=== PATIENT | female | born 1955 | race Caucasian/White ===

== ENCOUNTER 2018-07-13 10:39 | Inpatient (IN) | payer MEDICAID, OTHER ==
[~2018-07-13] VITALS: Ht 165.1 cm; Wt 84.4 kg
[~2018-07-13 10:39] MED LIST: AMLO10TA80 PO; BACL-141 PO; DOCU-150 PO; FERR325T6 PO; GABA-290 PO; HYDR-4009 MT; HYDR25TA PO; LOSA50TA3 PO; OMEP20CA10 PO; SIMV20TA6 PO; [UNRECOGNIZED DRUG - CODE] PO
[2018-07-13] MEDS ORDERED: SODIUM CHLORIDE 0.9% 1,000 ML IV ONE (11:45)
[2018-07-13] MEDS ORDERED: KETOROLAC 30MG/ML VIAL IV STA (11:45)
[2018-07-13] MEDS ORDERED: ONDANSETRON HCL 4MG/2ML INJ IV STA (11:45)
[2018-07-13] MEDS ORDERED: CLINDAMYCIN 600 MG in DEXTROSE 5% WATER 50 ML IV ONE (12:15)
[2018-07-13] MEDS ORDERED: CEFTRIAXONE 1 G PREMIX 50 ML IV ONE (12:15)
[2018-07-13] MEDS ORDERED: SODIUM CHLORIDE 0.9% 1000ML BAG (SEPSIS BOLUS) IV ONE (12:15)
[2018-07-13] MEDS ORDERED: MORPHINE SULFATE 10 MG/ML CPJ IV ONE (12:15)
[2018-07-13 12:45] LABS: BASOPHILS % 0.4 % (0.0-2.0); LYMPHOCYTES % 9.3 % (20.0-50.0); MEAN CORPUSCULAR HEMOGLOBIN 27.8 pg (28.0-32.0); MEAN CORPUSCULAR VOLUME 86.2 fL (81.0-99.0); MEAN PLATELET VOLUME 9.9 fl (7.4-10.4); MONOCYTES % 9.5 % (2.0-8.0); NEUTROPHILS % 80.8 % (40.0-76.0); PLATELET 271 x1000/uL (130-400); RED CELL DISTRIBUTION WIDTH 14.9 % (11.6-14.6)
[2018-07-13 12:50] LABS: CHLORIDE 107 mEq/L (98-107)
[2018-07-13 12:59] LABS: INR 1.1; PROTHROMBIN TIME 11.1 sec (9.1-11.1)
[2018-07-13] MEDS ORDERED: DIATR MEGLU/DIATRIZOATE SOLN 30ML ONE (15:04)
[2018-07-13 23:57] VITALS: BP 125/55
[2018-07-14] VITALS (7 sets, daily range): BP systolic 102–150; BP diastolic 46–69
[2018-07-14] MEDS ORDERED: ONDANSETRON HCL 4MG/2ML INJ IV PRN (01:45)
[2018-07-14] MEDS ORDERED: MORPHINE SULFATE 4 MG/ML CPJ (NOT FOR IM USE) IV PRN (01:45)
[2018-07-14] MEDS: ACETAMINOPHEN 325MG TABLET PO PRN (03:28)
[2018-07-14 06:29] LABS: CREATINE KINASE 26 IU/L (26-192); CREATINE KINASE MB FRACTION < 1.0 ng/mL (0.5-3.6)
[2018-07-14] MEDS: ASPIRIN 81MG TABLET PO SCH (08:36)
[2018-07-14] MEDS: ENOXAPARIN 30MG/0.3ML SYR SUBCUT SCH ×2 (08:37→09:00)
[2018-07-14] MEDS ORDERED: ENOXAPARIN 40MG/0.4ML SYR SUBCUT SCH (09:00)
[2018-07-14] MEDS ORDERED: DEXTROSE 50% WATER 50ML SYRINGE IV PRN (14:15)
[2018-07-14 15:51] LABS: CREATINE KINASE 24 IU/L (26-192)
[2018-07-14 15:52] LABS: CREATINE KINASE MB FRACTION 1.1 ng/mL (0.5-3.6)
[2018-07-14] MEDS: OMEPRAZOLE 20MG CAPSULE EXTENDED RELEASE PO SCH (16:48)
[2018-07-14] MEDS: SODIUM CHLORIDE 0.9% 1,000 ML IV SCH (16:48)
[2018-07-14] MEDS: AMLODIPINE 10MG TABLET PO SCH (16:49)
[2018-07-14] MEDS: GABAPENTIN 300MG CAPSULE PO SCH (17:00)
[2018-07-14] MEDS ORDERED: MEDICATION NOT ON FORMULARY EA (Gabapentin 600 MG) PO SCH (17:00)
[2018-07-14] MEDS: BLOOD SUGAR DIAGNOSTIC STRIP TEST SCH ×2 (17:03→20:34)
[2018-07-14] MEDS: INSULIN LISPRO 100 UNITS/ML SUBCUT SCH ×2 (19:14→20:34)
[2018-07-14] MEDS ORDERED: VANCOMYCIN 1250MG in DEXTROSE 5% WATER 250ML IV SCH (20:00)
[2018-07-14] MEDS: ATORVASTATIN CALCIUM 40MG TABLET PO SCH (20:33)
[2018-07-14] MEDS ORDERED: BUPIVACAINE HCL/PF 0.5% (5MG/ML) 10ML ONE (23:00)
[2018-07-14] MEDS ORDERED: NORMAL SALINE 0.9% 10 ML SYR ONE (23:00)
[2018-07-14] MEDS ORDERED: BACITRACIN 50,000 UNITS/VIAL ONE (23:01)
[2018-07-15] MEDS: SODIUM CHLORIDE 0.9% 1,000 ML IV SCH ×3 (00:15→22:08)
[2018-07-15 01:30] LABS: CREATINE KINASE 31 IU/L (26-192)
[2018-07-15 01:33] LABS: CREATINE KINASE MB FRACTION 1.9 ng/mL (0.5-3.6)
[2018-07-15 04:00] VITALS: BP 132/58
[2018-07-15 06:35] LABS: BASOPHILS % 0.2 % (0.0-2.0); EOSINOPHILS % 0.5 % (0.0-5.0); HEMATOCRIT. 25.8 % (36.0-48.0); HEMOGLOBIN. 8.5 g/dL (12.0-16.0); LYMPHOCYTES % 14.6 % (20.0-50.0); MEAN CORPUSCULAR VOLUME 84.8 fL (81.0-99.0); MONOCYTES % 6.5 % (2.0-8.0); NEUTROPHILS % 78.2 % (40.0-76.0); PLATELET 251 x1000/uL (130-400); RED BLOOD CELL COUNT 3.04 mill/uL (4.2-5.4); RED CELL DISTRIBUTION WIDTH 14.7 % (11.6-14.6)
[2018-07-15] MEDS: BLOOD SUGAR DIAGNOSTIC STRIP TEST SCH ×4 (07:50→21:28)
[2018-07-15 08:00] VITALS: BP 110/57
[2018-07-15] MEDS: INSULIN LISPRO 100 UNITS/ML SUBCUT SCH ×4 (08:10→22:07)
[2018-07-15] MEDS: AMLODIPINE 10MG TABLET PO SCH (08:53)
[2018-07-15] MEDS: GABAPENTIN 300MG CAPSULE PO SCH ×3 (09:05→18:12)
[2018-07-15] MEDS: ACETAMINOPHEN 325MG TABLET PO PRN ×2 (09:05→19:53)
[2018-07-15] MEDS: OMEPRAZOLE 20MG CAPSULE EXTENDED RELEASE PO SCH (09:06)
[2018-07-15] MEDS: ASPIRIN 81MG TABLET PO SCH (09:06)
[2018-07-15] MEDS: ENOXAPARIN 30MG/0.3ML SYR SUBCUT SCH (09:08)
[2018-07-15 16:00] VITALS: BP 104/69
[2018-07-15 20:00] VITALS: BP 118/55
[2018-07-15] MEDS ORDERED: VANCOMYCIN 750 MG PREMIX 150 ML IV SCH (20:00)
[2018-07-15] MEDS: ATORVASTATIN CALCIUM 40MG TABLET PO SCH (22:12)
[2018-07-15] MEDS: VANCOMYCIN 1 G PREMIX 200 ML IV SCH (23:38)
[2018-07-16] VITALS: BP 105/54
[2018-07-16] MEDS: PIPERACILLIN SODIUM/TAZOBACTAM 4.5 G in DEXT 5% WATER 100 ML IV SCH ×4 (01:09→17:28)
[2018-07-16 04:00] VITALS: BP 141/73
[2018-07-16] MEDS: SODIUM CHLORIDE 0.9% 1,000 ML IV SCH ×2 (06:15→16:15)
[2018-07-16] MEDS: BLOOD SUGAR DIAGNOSTIC STRIP TEST SCH ×4 (07:36→21:10)
[2018-07-16] MEDS: INSULIN LISPRO 100 UNITS/ML SUBCUT SCH ×4 (07:36→22:35)
[2018-07-16 08:00] VITALS: BP 97/60
[2018-07-16 08:14] LABS: HIV SCREEN 4G Non Reactive (Non Reactive)
[2018-07-16] MEDS ORDERED: BACITRACIN 50,000 UNITS/VIAL ONE (08:17)
[2018-07-16] MEDS ORDERED: LIDOCAINE HCL 1% 20ML VIAL (Pyxis) INJ ONE (08:18)
[2018-07-16] MEDS ORDERED: BUPIVACAINE HCL/PF 0.5% (5MG/ML) 10ML ONE (08:18)
[2018-07-16] MEDS ORDERED: NORMAL SALINE 0.9% 10 ML SYR ONE (08:19)
[2018-07-16] MEDS ORDERED: MIDAZOLAM HCL 2 MG/2 ML VIAL ONE ×2 (08:40→09:16)
[2018-07-16] MEDS ORDERED: PROPOFOL 200MG/20ML VIAL IV ONE (08:40)
[2018-07-16] MEDS ORDERED: FENTANYL CITRATE/PF 50MCG/ML 2ML VIAL ONE (08:40)
[2018-07-16] MEDS: ASPIRIN 81MG TABLET PO SCH (09:00)
[2018-07-16] MEDS: FAMOTIDINE 20MG TABLET PO SCH (09:00)
[2018-07-16] MEDS: ENOXAPARIN 40MG/0.4ML SYR SUBCUT SCH (09:00)
[2018-07-16] MEDS: AMLODIPINE 10MG TABLET PO SCH (09:00)
[2018-07-16] MEDS: GABAPENTIN 300MG CAPSULE PO SCH ×3 (09:00→17:28)
[2018-07-16] MEDS ORDERED: HYDROMORPHONE HCL/PF 2MG/ML CPJ IV PRN (09:15)
[2018-07-16] MEDS ORDERED: ONDANSETRON HCL 4MG/2ML INJ IV PRN (09:15)
[2018-07-16] MEDS ORDERED: MEPERIDINE HCL/PF 25MG/ML CPJ IV PRN (09:15)
[2018-07-16] MEDS ORDERED: LABETALOL 5MG/ML SYR 20 MG/4 ML SYRINGE IV PRN (09:15)
[2018-07-16] MEDS ORDERED: HYDROMORPHONE HCL/PF 2MG/ML (OR) ONE (09:16)
[2018-07-16] MEDS ORDERED: DEXAMETHASONE 4MG/ML 1ML VIAL ONE (09:16)
[2018-07-16 12:00] VITALS: BP 97/60
[2018-07-16 16:00] VITALS: BP 116/65
[2018-07-16] MEDS: HYDROMORPHONE HCL/PF 2MG/ML CPJ IV PRN ×2 (17:47→22:36)
[2018-07-16 20:00] VITALS: BP 98/54
[2018-07-16] MEDS: VANCOMYCIN 1 G PREMIX 200 ML IV SCH (22:37)
[2018-07-16] MEDS: ATORVASTATIN CALCIUM 40MG TABLET PO SCH (22:37)
[2018-07-17] VITALS: BP 111/55
[2018-07-17] MEDS: PIPERACILLIN SODIUM/TAZOBACTAM 4.5 G in DEXT 5% WATER 100 ML IV SCH ×2 (02:00→03:56)
[2018-07-17] MEDS: HYDROMORPHONE HCL/PF 2MG/ML CPJ IV PRN ×2 (03:55→13:56)
[2018-07-17] MEDS: SODIUM CHLORIDE 0.9% 1,000 ML IV SCH ×3 (03:56→22:42)
[2018-07-17 04:00] VITALS: BP 149/69
[2018-07-17] MEDS: BLOOD SUGAR DIAGNOSTIC STRIP TEST SCH ×4 (06:52→21:13)
[2018-07-17 07:15] LABS: BASOPHILS % 0.1 % (0.0-2.0); HEMOGLOBIN. 8.2 g/dL (12.0-16.0); LYMPHOCYTES % 13.5 % (20.0-50.0); MEAN CORPUSCULAR HEMOGLOBIN 28.2 pg (28.0-32.0); MEAN CORPUSCULAR VOLUME 85.5 fL (81.0-99.0); MEAN PLATELET VOLUME 9.9 fl (7.4-10.4); MONOCYTES % 4.9 % (2.0-8.0); NEUTROPHILS % 81.5 % (40.0-76.0); PLATELET 246 x1000/uL (130-400); RED BLOOD CELL COUNT 2.93 mill/uL (4.2-5.4); RED CELL DISTRIBUTION WIDTH 15.2 % (11.6-14.6)
[2018-07-17 08:00] VITALS: BP 136/61
[2018-07-17] MEDS: FAMOTIDINE 20MG TABLET PO SCH (10:26)
[2018-07-17] MEDS: ASPIRIN 81MG TABLET PO SCH (10:26)
[2018-07-17] MEDS: GABAPENTIN 300MG CAPSULE PO SCH ×3 (10:26→17:18)
[2018-07-17] MEDS: ENOXAPARIN 40MG/0.4ML SYR SUBCUT SCH (10:27)
[2018-07-17] MEDS: PIPERACILLIN/TAZ 2.25G PREMIX 50 ML IV SCH ×3 (10:27→17:18)
[2018-07-17] MEDS: INSULIN LISPRO 100 UNITS/ML SUBCUT SCH ×4 (10:39→21:22)
[2018-07-17] MEDS: AMLODIPINE 10MG TABLET PO SCH (11:35)
[2018-07-17] MEDS: ACETAMINOPHEN 325MG TABLET PO PRN (11:36)
[2018-07-17 12:00] VITALS: BP 131/61
[2018-07-17 16:00] VITALS: BP 141/54
[2018-07-17 20:00] VITALS: BP 102/42
[2018-07-17] MEDS: ATORVASTATIN CALCIUM 40MG TABLET PO SCH (21:13)
[2018-07-17] MEDS: VANCOMYCIN 1 G PREMIX 200 ML IV SCH (22:43)
[2018-07-18] VITALS: BP 107/50
[2018-07-18] MEDS: PIPERACILLIN/TAZ 2.25G PREMIX 50 ML IV SCH ×4 (00:11→17:07)
[2018-07-18 04:00] VITALS: BP 112/52
[2018-07-18] MEDS: HYDROMORPHONE HCL/PF 2MG/ML CPJ IV PRN ×3 (06:15→22:16)
[2018-07-18 08:00] VITALS: BP 115/54
[2018-07-18] MEDS: BLOOD SUGAR DIAGNOSTIC STRIP TEST SCH ×4 (08:10→21:19)
[2018-07-18] MEDS: FAMOTIDINE 20MG TABLET PO SCH (08:31)
[2018-07-18] MEDS: ASPIRIN 81MG TABLET PO SCH (08:31)
[2018-07-18] MEDS: ENOXAPARIN 40MG/0.4ML SYR SUBCUT SCH (08:32)
[2018-07-18] MEDS: AMLODIPINE 10MG TABLET PO SCH (08:34)
[2018-07-18] MEDS: GABAPENTIN 300MG CAPSULE PO SCH ×3 (08:34→16:23)
[2018-07-18] MEDS: INSULIN LISPRO 100 UNITS/ML SUBCUT SCH ×4 (08:36→21:30)
[2018-07-18] MEDS: SODIUM CHLORIDE 0.9% 1,000 ML IV SCH ×2 (10:13→21:29)
[2018-07-18] MEDS: ACETAMINOPHEN 325MG TABLET PO PRN (12:24)
[2018-07-18 12:30] VITALS: BP 100/51
[2018-07-18 16:00] VITALS: BP 104/58
[2018-07-18 20:00] VITALS: BP 104/56
[2018-07-18] MEDS: ATORVASTATIN CALCIUM 40MG TABLET PO SCH (21:29)
[2018-07-18] MEDS: VANCOMYCIN 1 G PREMIX 200 ML IV SCH (22:16)
[2018-07-19] VITALS: BP 118/57
[2018-07-19] MEDS: PIPERACILLIN/TAZ 2.25G PREMIX 50 ML IV SCH ×5 (01:04→23:52)
[2018-07-19 04:00] VITALS: BP 133/73
[2018-07-19] MEDS: HYDROMORPHONE HCL/PF 2MG/ML CPJ IV PRN ×2 (05:29→09:44)
[2018-07-19 06:04] LABS: HEMATOCRIT. 26.7 % (36.0-48.0); HEMOGLOBIN. 8.9 g/dL (12.0-16.0); MEAN CORPUSCULAR HEMOGLOBIN 28.6 pg (28.0-32.0); MEAN CORPUSCULAR VOLUME 86.1 fL (81.0-99.0); MEAN PLATELET VOLUME 9.3 fl (7.4-10.4); PLATELET 301 x1000/uL (130-400); RED CELL DISTRIBUTION WIDTH 15.4 % (11.6-14.6)
[2018-07-19] MEDS: BLOOD SUGAR DIAGNOSTIC STRIP TEST SCH ×4 (07:22→21:18)
[2018-07-19] MEDS: INSULIN LISPRO 100 UNITS/ML SUBCUT SCH ×4 (07:54→21:00)
[2018-07-19 08:00] VITALS: BP 135/61
[2018-07-19 08:41] LABS: CHLORIDE 113 mEq/L (98-107)
[2018-07-19] MEDS: ENOXAPARIN 40MG/0.4ML SYR SUBCUT SCH (09:42)
[2018-07-19] MEDS: GABAPENTIN 300MG CAPSULE PO SCH ×3 (09:42→18:17)
[2018-07-19] MEDS: FAMOTIDINE 20MG TABLET PO SCH (09:42)
[2018-07-19] MEDS: ASPIRIN 81MG TABLET PO SCH (09:42)
[2018-07-19] MEDS: AMLODIPINE 10MG TABLET PO SCH (09:56)
[2018-07-19 11:27] LABS: PLATELET ESTIMATE NORMAL
[2018-07-19] MEDS: SODIUM CHLORIDE 0.9% 1,000 ML IV SCH (13:43)
[2018-07-19] MEDS: ACETAMINOPHEN 325MG TABLET PO PRN (18:32)
[2018-07-19 20:00] VITALS: BP 124/52
[2018-07-19] MEDS: ATORVASTATIN CALCIUM 40MG TABLET PO SCH (21:42)
[2018-07-20] VITALS: BP 118/60
[2018-07-20] MEDS: SODIUM CHLORIDE 0.9% 1,000 ML IV SCH ×4 (00:15→20:15)
[2018-07-20] MEDS: ACETAMINOPHEN 325MG TABLET PO PRN (01:51)
[2018-07-20] MEDS: VANCOMYCIN 1,000 MG in DEXT 5% WATER 250 ML IV SCH ×2 (02:25→23:00)
[2018-07-20 04:00] VITALS: BP 119/62
[2018-07-20] MEDS: PIPERACILLIN/TAZ 2.25G PREMIX 50 ML IV SCH ×4 (05:37→23:03)
[2018-07-20] MEDS: BLOOD SUGAR DIAGNOSTIC STRIP TEST SCH ×4 (06:44→21:05)
[2018-07-20 08:00] VITALS: BP 135/51
[2018-07-20] MEDS: INSULIN LISPRO 100 UNITS/ML SUBCUT SCH ×4 (09:56→21:29)
[2018-07-20] MEDS: ENOXAPARIN 40MG/0.4ML SYR SUBCUT SCH (09:56)
[2018-07-20] MEDS: FAMOTIDINE 20MG TABLET PO SCH (09:56)
[2018-07-20] MEDS: ASPIRIN 81MG TABLET PO SCH (09:56)
[2018-07-20] MEDS: AMLODIPINE 10MG TABLET PO SCH (10:01)
[2018-07-20] MEDS: GABAPENTIN 300MG CAPSULE PO SCH ×3 (10:01→18:55)
[2018-07-20 12:00] VITALS: BP 128/56
[2018-07-20] MEDS: HYDROMORPHONE HCL/PF 2MG/ML CPJ IV PRN (12:50)
[2018-07-20 16:00] VITALS: BP 122/56
[2018-07-20 20:00] VITALS: BP 110/54
[2018-07-20] MEDS: ATORVASTATIN CALCIUM 40MG TABLET PO SCH (21:27)
[2018-07-20] MEDS: TRAMADOL 50MG TABLET PO PRN (23:00)
[2018-07-21] VITALS: BP 115/59
[2018-07-21 04:00] VITALS: BP 118/56
[2018-07-21] MEDS: PIPERACILLIN/TAZ 2.25G PREMIX 50 ML IV SCH ×2 (05:42→12:00)
[2018-07-21] MEDS: TRAMADOL 50MG TABLET PO PRN ×3 (05:46→17:20)
[2018-07-21] MEDS: SODIUM CHLORIDE 0.9% 1,000 ML IV SCH ×2 (06:15→12:55)
[2018-07-21] MEDS: BLOOD SUGAR DIAGNOSTIC STRIP TEST SCH ×4 (06:46→20:49)
[2018-07-21 08:00] VITALS: BP 136/68
[2018-07-21] MEDS: FAMOTIDINE 20MG TABLET PO SCH (08:06)
[2018-07-21] MEDS: GABAPENTIN 300MG CAPSULE PO SCH ×3 (08:06→17:20)
[2018-07-21] MEDS: ASPIRIN 81MG TABLET PO SCH (08:06)
[2018-07-21] MEDS: AMLODIPINE 10MG TABLET PO SCH (08:06)
[2018-07-21] MEDS: INSULIN LISPRO 100 UNITS/ML SUBCUT SCH ×4 (08:10→20:48)
[2018-07-21 12:00] VITALS: BP 120/51
[2018-07-21] MEDS ORDERED: DOXYCYCLINE HYCLATE 100MG CAPSULE PO SCH (14:00)
[2018-07-21 16:00] VITALS: BP 124/64
[2018-07-21] MEDS: ENOXAPARIN 40MG/0.4ML SYR SUBCUT SCH (17:20)
[2018-07-21 20:00] VITALS: BP 125/61
[2018-07-21] MEDS: AMOXICILLIN/POTASSIUM CLAVULANATE 875/125MG TAB PO SCH (20:31)
[2018-07-21] MEDS: ATORVASTATIN CALCIUM 40MG TABLET PO SCH (20:31)
[2018-07-21] MEDS: ACETAMINOPHEN 325MG TABLET PO PRN (20:32)
[2018-07-22 00:37] VITALS: BP 116/56
[2018-07-22] MEDS: SODIUM CHLORIDE 0.9% 1,000 ML IV SCH ×2 (02:15→12:15)
[2018-07-22] MEDS: TRAMADOL 50MG TABLET PO PRN ×2 (05:48→13:06)
[2018-07-22] MEDS: BLOOD SUGAR DIAGNOSTIC STRIP TEST SCH ×3 (06:41→17:34)
[2018-07-22 08:00] VITALS: BP 115/49
[2018-07-22] MEDS: FAMOTIDINE 20MG TABLET PO SCH (08:16)
[2018-07-22] MEDS: ENOXAPARIN 40MG/0.4ML SYR SUBCUT SCH (08:16)
[2018-07-22] MEDS: ASPIRIN 81MG TABLET PO SCH (08:16)
[2018-07-22] MEDS: GABAPENTIN 300MG CAPSULE PO SCH ×3 (08:16→17:52)
[2018-07-22] MEDS: AMOXICILLIN/POTASSIUM CLAVULANATE 875/125MG TAB PO SCH (08:16)
[2018-07-22] MEDS: AMLODIPINE 10MG TABLET PO SCH (08:21)
[2018-07-22] MEDS: INSULIN LISPRO 100 UNITS/ML SUBCUT SCH ×3 (09:47→17:34)
[2018-07-22 12:00] VITALS: BP 119/54
[2018-07-22 16:00] VITALS: BP 114/61
[2018-07-22 16:45] VITALS: BP 104/67
[2018-07-22] MEDS ORDERED: AMOX-424 MT (16:51)
[2018-07-22] MEDS ORDERED: DOXY100T2 MT (16:52)
[2018-07-22 20:00] VITALS: BP 96/106
== END 2018-07-22 21:30 | DRG 710 ==
LOC: ER 10:39 → 7WST 14:12 → EDBEDREQSVC 14:20 → EDBEDREQTM 14:20 → EDBEDREQ 14:20 → ENRESERV 21:15
PROVIDERS: ADMIT Internal Medicine; ATTEND Internal Medicine
PROC: 0J9C0ZZ Drainage of Pelvic Region Subcutaneous Tissue and Fascia, Open Approach (ICD-10-PCS; principal; 2018-07-14)
PROC: 0KBP0ZZ Excision of Left Hip Muscle, Open Approach (ICD-10-PCS; 2018-07-14)
DX: A41.9 Sepsis, unspecified organism (principal); N17.0 Acute kidney failure with tubular necrosis; M72.6 Necrotizing fasciitis; E46 Unspecified protein-calorie malnutrition; E11.22 Type 2 diabetes mellitus with diabetic chronic kidney disease; D64.9 Anemia, unspecified; K61.1 Rectal abscess; E78.00 Pure hypercholesterolemia, unspecified; E78.5 Hyperlipidemia, unspecified; E86.0 Dehydration; K21.9 Gastro-esophageal reflux disease without esophagitis; L02.31 Cutaneous abscess of buttock; L03.317 Cellulitis of buttock; K62.89 Other specified diseases of anus and rectum; I12.9 Hypertensive chronic kidney disease with stage 1 through stage 4 chronic kidney disease, or unspecified chronic kidney disease; N18.9 Chronic kidney disease, unspecified; Z68.31 Body mass index [BMI] 31.0-31.9, adult
CPT/HCPCS: 36415; 72192; 73030; 80048; 80202; 82550; 82553; 82962; 83036; 83605; 84484; 87389; 88304; 93005; 96365; 96366; 96375; 99291; A6261; J0696; J1100; J1170; J1650; J1815; J1885; J2250; J2270; J2405; J2543; J2704; J3010; J3370; J3490; J7030; J7060; Q9963; A4315

== ENCOUNTER 2019-01-21 12:17 | Emergency (ER) | payer MEDICAID, OTHER ==
[~2019-01-21] VITALS: Ht 160 cm; Wt 79.0 kg
[~2019-01-21 12:17] MED LIST changes: +AMOX-424 MT; +DOXY100T2 MT; -OMEP20CA10 PO; +OMEP20CA5 PO
[2019-01-21 13:10] LABS: BASOPHILS % 0.9 % (0.0-2.0); CHLORIDE 113 mEq/L (98-107); EOSINOPHILS % 1.7 % (0.0-5.0); HEMATOCRIT. 32.4 % (36.0-48.0); LYMPHOCYTES % 43.1 % (20.0-50.0); MEAN CORPUSCULAR VOLUME 82.7 fL (81.0-99.0); MEAN PLATELET VOLUME 8.4 fl (7.4-10.4); MONOCYTES % 5.9 % (2.0-8.0); NEUTROPHILS % 48.4 % (40.0-76.0); PLATELET 196 x1000/uL (130-400); RED BLOOD CELL COUNT 3.92 mill/uL (4.2-5.4); RED CELL DISTRIBUTION WIDTH 18.2 % (11.6-14.6)
[2019-01-21 15:45] VITALS: BP 131/78
== END 2019-01-21 15:46 | disposition home or self-care (01) ==
LOC: ER 12:17
DX: E87.5 Hyperkalemia (principal); R53.1 Weakness; R42 Dizziness and giddiness; E11.9 Type 2 diabetes mellitus without complications; I10 Essential (primary) hypertension; Z79.899 Other long term (current) drug therapy; Z88.5 Allergy status to narcotic agent
CPT/HCPCS: 36415; 93005; 99284

== ENCOUNTER 2019-01-24 11:23 | Inpatient (IN) | payer MEDICAID ==
[~2019-01-24] VITALS: Ht 157.5 cm; Wt 84.8 kg
[2019-01-24 12:27] LABS: BASOPHILS % 0.4 % (0.0-2.0); EOSINOPHILS % 1.6 % (0.0-5.0); HEMATOCRIT. 31.9 % (36.0-48.0); HEMOGLOBIN. 10.8 g/dL (12.0-16.0); LYMPHOCYTES % 41.5 % (20.0-50.0); MEAN CORPUSCULAR HEMOGLOBIN 28.1 pg (28.0-32.0); MEAN CORPUSCULAR VOLUME 83.2 fL (81.0-99.0); MEAN PLATELET VOLUME 8.1 fl (7.4-10.4); MONOCYTES % 6.9 % (2.0-8.0); NEUTROPHILS % 49.6 % (40.0-76.0); PLATELET 216 x1000/uL (130-400); RED BLOOD CELL COUNT 3.84 mill/uL (4.2-5.4); RED CELL DISTRIBUTION WIDTH 17.7 % (11.6-14.6)
[2019-01-24 12:32] LABS: CHLORIDE 108 mEq/L (98-107)
[2019-01-24] MEDS ORDERED: CLONIDINE 0.1MG TABLET PO PRN (14:00)
[2019-01-24] MEDS ORDERED: IPRATROPIUM/ALBUTEROL 0.5-3(2.5)MG/3ML NEB HHN PRN (14:00)
[2019-01-24] MEDS ORDERED: ONDANSETRON HCL 4MG/2ML INJ IV PRN (14:00)
[2019-01-24] MEDS ORDERED: LORAZEPAM 0.5MG TABLET PO PRN (14:00)
[2019-01-24] MEDS ORDERED: ACETAMINOPHEN 325MG TABLET PO PRN (14:00)
[2019-01-24] MEDS ORDERED: DOCUSATE SODIUM 100MG CAPSULE PO PRN (14:00)
[2019-01-24 17:00] VITALS: BP 149/67
[2019-01-24 20:00] VITALS: BP 119/65
[2019-01-24] MEDS: HYDROCODONE/ACETAMINOPHEN 5/325MG TABLET PO PRN (22:22)
[2019-01-24] MEDS: AMLODIPINE 5MG TABLET PO SCH (22:23)
[2019-01-24] MEDS: ATORVASTATIN CALCIUM 20MG TABLET PO SCH (22:23)
[2019-01-24] MEDS: BACLOFEN 10MG TABLET PO SCH (22:23)
[2019-01-25] VITALS: BP 126/72
[2019-01-25 04:00] VITALS: BP 146/60
[2019-01-25] MEDS: BACLOFEN 10MG TABLET PO SCH ×3 (05:22→21:44)
[2019-01-25] MEDS: HYDROCODONE/ACETAMINOPHEN 5/325MG TABLET PO PRN ×3 (05:23→15:19)
[2019-01-25 07:46] LABS: BASOPHILS % 1.1 % (0.0-2.0); EOSINOPHILS % 1.5 % (0.0-5.0); HEMATOCRIT. 29.3 % (36.0-48.0); HEMOGLOBIN. 9.7 g/dL (12.0-16.0); MEAN CORPUSCULAR VOLUME 84.4 fL (81.0-99.0); MEAN PLATELET VOLUME 8.1 fl (7.4-10.4); MONOCYTES % 7.3 % (2.0-8.0); NEUTROPHILS % 36.1 % (40.0-76.0); PLATELET 201 x1000/uL (130-400); RED BLOOD CELL COUNT 3.47 mill/uL (4.2-5.4); RED CELL DISTRIBUTION WIDTH 17.2 % (11.6-14.6)
[2019-01-25 08:00] VITALS: BP 133/51
[2019-01-25 08:12] LABS: CHLORIDE 112 mEq/L (98-107)
[2019-01-25 08:23] LABS: LDL CHOLESTEROL 73 mg/dL (5-100)
[2019-01-25 08:24] LABS: CREATINE KINASE 44 IU/L (26-192); CREATINE KINASE MB FRACTION 1.3 ng/mL (0.5-3.6); HDL CHOLESTEROL 57 mg/dL (40-59)
[2019-01-25] MEDS: NICOTINE 14MG PATCH TD SCH (09:38)
[2019-01-25] MEDS: AMLODIPINE 5MG TABLET PO SCH ×2 (09:39→21:44)
[2019-01-25 12:00] VITALS: BP 146/63
[2019-01-25] MEDS ORDERED: REGADENOSON 0.4 MG/5 ML IV NR (12:00)
[2019-01-25] MEDS: DEXAMETHASONE 4MG/ML 1ML VIAL IV SCH ×2 (12:14→18:18)
[2019-01-25] MEDS ORDERED: REGADENOSON 0.4 MG/5 ML IV ONE (13:16)
[2019-01-25 16:00] VITALS: BP 131/50
[2019-01-25 20:00] VITALS: BP 165/76
[2019-01-25] MEDS: ATORVASTATIN CALCIUM 20MG TABLET PO SCH (21:44)
[2019-01-25 23:51] LABS: PROTHROMBIN TIME 10.5 sec (9.6-11.0)
[2019-01-26] VITALS (46 sets, daily range): BP systolic 108–170; BP diastolic 45–83
[2019-01-26] MEDS: DEXAMETHASONE 4MG/ML 1ML VIAL IV SCH ×5 (00:34→23:12)
[2019-01-26] MEDS: BACLOFEN 10MG TABLET PO SCH ×3 (06:09→21:23)
[2019-01-26 07:13] LABS: BASOPHILS % 0.4 % (0.0-2.0); HEMATOCRIT. 34.5 % (36.0-48.0); HEMOGLOBIN. 11.7 g/dL (12.0-16.0); LYMPHOCYTES % 32.4 % (20.0-50.0); MEAN CORPUSCULAR HEMOGLOBIN 28.1 pg (28.0-32.0); MEAN PLATELET VOLUME 8.4 fl (7.4-10.4); MONOCYTES % 1.3 % (2.0-8.0); NEUTROPHILS % 65.9 % (40.0-76.0); PLATELET 241 x1000/uL (130-400); RED BLOOD CELL COUNT 4.15 mill/uL (4.2-5.4); RED CELL DISTRIBUTION WIDTH 17.6 % (11.6-14.6)
[2019-01-26] MEDS ORDERED: BACITRACIN 50,000 UNITS/VIAL ONE (08:10)
[2019-01-26] MEDS ORDERED: LIDOCAINE HCL/EPINEPHRINE 1%-EPI 1:100,000 20 ML VIAL ONE (08:10)
[2019-01-26] MEDS ORDERED: NORMAL SALINE 0.9% 10 ML SYR ONE (08:10)
[2019-01-26] MEDS ORDERED: THROMBIN (BOVINE) 5000 UNITS/VIAL TOP ONE (08:10)
[2019-01-26] MEDS ORDERED: BACITRACIN 15GM TUBE TOP ONE (08:10)
[2019-01-26] MEDS: AMLODIPINE 5MG TABLET PO SCH ×2 (09:00→20:04)
[2019-01-26] MEDS: NICOTINE 14MG PATCH TD SCH (09:00)
[2019-01-26] MEDS ORDERED: NEOSTIGMINE METHYLSULFATE 1MG/ML 10 ML VIAL ONE (09:33)
[2019-01-26] MEDS ORDERED: FENTANYL CITRATE/PF 50MCG/ML 2ML VIAL ONE (09:33)
[2019-01-26] MEDS ORDERED: ROCURONIUM BROMIDE 10MG/ML VIAL 5ML IV ONE ×3 (09:33→10:07)
[2019-01-26] MEDS ORDERED: PROPOFOL 200MG/20ML VIAL IV ONE ×2 (09:34→10:08)
[2019-01-26] MEDS ORDERED: GLYCOPYRROLATE 0.2 MG/ML 2ML VIAL ONE (09:34)
[2019-01-26] MEDS ORDERED: MIDAZOLAM HCL 2 MG/2 ML VIAL ONE (09:34)
[2019-01-26] MEDS ORDERED: ONDANSETRON HCL 4MG/2ML INJ ONE (09:39)
[2019-01-26] MEDS ORDERED: DEXAMETHASONE 4MG/ML 1ML VIAL ONE (09:39)
[2019-01-26 09:45] LABS: CLARITY URINE CLEAR (CLEAR); COLOR URINE YELLOW (YELLOW); KETONES URINE NEGATIVE (NEGATIVE); LEUKOCYTE ESTERASE URINE NEGATIVE (NEGATIVE); NITRITE URINE NEGATIVE (NEGATIVE); OCCULT BLOOD URINE TRACE (NEGATIVE); PROTEIN URINE 3+ (NEGATIVE); SPECIFIC GRAVITY URINE 1.012 (1.005-1.030)
[2019-01-26] MEDS: DEXT 5%/LACTATED RINGERS 1,000 ML IV SCH ×2 (09:45→17:45)
[2019-01-26] MEDS ORDERED: SUCCINYLCHOLINE CHLORIDE 200MG/10ML IV ONE (10:05)
[2019-01-26] MEDS ORDERED: FENTANYL CITRATE/PF 50MCG/ML 5ML VIAL ONE (10:12)
[2019-01-26] MEDS: NICARDIPINE 100 MG in SODIUM CHLORIDE 0.9% 60 ML IV PRN (12:55)
[2019-01-26] MEDS: HYDROMORPHONE HCL/PF 2MG/ML CPJ IV PRN ×2 (13:17→20:06)
[2019-01-26] MEDS ORDERED: CEFAZOLIN 1000MG PREMIX 50 ML IV SCH (14:00)
[2019-01-26] MEDS ORDERED: CEFAZOLIN SODIUM 1000MG/VIAL IV SCH (14:00)
[2019-01-26] MEDS ORDERED: HYDROMORPHONE HCL/PF 2MG/ML CPJ IV NR (15:00)
[2019-01-26] MEDS: CEFAZOLIN 1000MG PREMIX 50 ML IV SCH ×2 (16:22→22:44)
[2019-01-26] MEDS: ATORVASTATIN CALCIUM 20MG TABLET PO SCH (20:04)
[2019-01-27] VITALS (100 sets, daily range): BP systolic 91–166; BP diastolic 29–102
[2019-01-27] MEDS: HYDROMORPHONE HCL/PF 2MG/ML CPJ IV PRN ×6 (04:06→23:12)
[2019-01-27] MEDS: DEXT 5%/LACTATED RINGERS 1,000 ML IV SCH ×3 (04:07→17:45)
[2019-01-27] MEDS: BACLOFEN 10MG TABLET PO SCH ×3 (05:06→21:21)
[2019-01-27] MEDS: CEFAZOLIN 1000MG PREMIX 50 ML IV SCH ×3 (05:07→21:22)
[2019-01-27] MEDS: DEXAMETHASONE 4MG/ML 1ML VIAL IV SCH ×3 (05:07→18:06)
[2019-01-27 05:23] LABS: HEMATOCRIT. 30.3 % (36.0-48.0); HEMOGLOBIN. 9.8 g/dL (12.0-16.0); MEAN CORPUSCULAR HEMOGLOBIN 27.1 pg (28.0-32.0); MEAN CORPUSCULAR VOLUME 84.1 fL (81.0-99.0); MEAN PLATELET VOLUME 8.7 fl (7.4-10.4); PLATELET 222 x1000/uL (130-400); RED CELL DISTRIBUTION WIDTH 17.9 % (11.6-14.6)
[2019-01-27] MEDS: AMLODIPINE 5MG TABLET PO SCH ×2 (09:00→21:21)
[2019-01-27] MEDS: NICOTINE 14MG PATCH TD SCH (09:34)
[2019-01-27] MEDS: DIPHENHYDRAMINE 50MG/ML VIAL IV PRN ×4 (10:14→22:17)
[2019-01-27 12:25] LABS: PLATELET ESTIMATE NORMAL
[2019-01-27] MEDS: NICARDIPINE 100 MG in SODIUM CHLORIDE 0.9% 60 ML IV PRN (13:33)
[2019-01-27] MEDS ORDERED: DEXTROSE 50% WATER 50ML SYRINGE IV PRN (14:30)
[2019-01-27] MEDS: BLOOD SUGAR DIAGNOSTIC STRIP TEST SCH ×2 (16:46→21:23)
[2019-01-27] MEDS: INSULIN LISPRO 100 UNITS/ML SUBCUT SCH ×2 (16:56→21:22)
[2019-01-27] MEDS: ATORVASTATIN CALCIUM 20MG TABLET PO SCH (21:21)
[2019-01-28] VITALS (66 sets, daily range): BP systolic 35–168; BP diastolic 17–126
[2019-01-28] MEDS: DEXT 5%/LACTATED RINGERS 1,000 ML IV SCH ×3 (01:43→21:26)
[2019-01-28] MEDS: HYDROMORPHONE HCL/PF 2MG/ML CPJ IV PRN ×4 (01:44→14:55)
[2019-01-28] MEDS: DIPHENHYDRAMINE 50MG/ML VIAL IV PRN ×3 (02:35→12:07)
[2019-01-28 04:59] LABS: BASOPHILS % 0.2 % (0.0-2.0); HEMATOCRIT. 31.1 % (36.0-48.0); HEMOGLOBIN. 10.1 g/dL (12.0-16.0); LYMPHOCYTES % 11.7 % (20.0-50.0); MEAN CORPUSCULAR HEMOGLOBIN 27.9 pg (28.0-32.0); MEAN CORPUSCULAR VOLUME 85.7 fL (81.0-99.0); MEAN PLATELET VOLUME 8.8 fl (7.4-10.4); MONOCYTES % 4.5 % (2.0-8.0); NEUTROPHILS % 83.6 % (40.0-76.0); PLATELET 216 x1000/uL (130-400); RED BLOOD CELL COUNT 3.63 mill/uL (4.2-5.4); RED CELL DISTRIBUTION WIDTH 17.5 % (11.6-14.6)
[2019-01-28] MEDS: CEFAZOLIN 1000MG PREMIX 50 ML IV SCH ×3 (05:00→21:25)
[2019-01-28] MEDS: BACLOFEN 10MG TABLET PO SCH ×3 (05:00→21:25)
[2019-01-28] MEDS: BLOOD SUGAR DIAGNOSTIC STRIP TEST SCH ×4 (05:38→21:11)
[2019-01-28] MEDS: INSULIN LISPRO 100 UNITS/ML SUBCUT SCH ×4 (05:46→21:00)
[2019-01-28] MEDS: AMLODIPINE 5MG TABLET PO SCH ×2 (08:03→21:00)
[2019-01-28] MEDS: HYDROCODONE/ACETAMINOPHEN 5/325MG TABLET PO PRN (08:07)
[2019-01-28] MEDS: NICOTINE 14MG PATCH TD SCH (08:08)
[2019-01-28] MEDS ORDERED: CLONIDINE 0.1MG TABLET PO PRN (13:15)
[2019-01-28] MEDS ORDERED: HYDRALAZINE 20MG/ML VIAL IV PRN (13:15)
[2019-01-28] MEDS: LORAZEPAM 2MG/ML CPJ IV PRN (16:56)
[2019-01-28] MEDS: ATORVASTATIN CALCIUM 20MG TABLET PO SCH (21:25)
[2019-01-29 04:00] VITALS: BP 173/80
[2019-01-29] MEDS: HYDROMORPHONE HCL/PF 2MG/ML CPJ IV PRN ×5 (05:41→14:03)
[2019-01-29] MEDS: BACLOFEN 10MG TABLET PO SCH ×3 (05:41→21:24)
[2019-01-29] MEDS: CEFAZOLIN 1000MG PREMIX 50 ML IV SCH ×3 (05:41→21:24)
[2019-01-29 07:06] LABS: BASOPHILS % 0.4 % (0.0-2.0); EOSINOPHILS % 0.1 % (0.0-5.0); HEMATOCRIT. 29.8 % (36.0-48.0); HEMOGLOBIN. 9.8 g/dL (12.0-16.0); MEAN CORPUSCULAR HEMOGLOBIN 27.9 pg (28.0-32.0); MEAN CORPUSCULAR VOLUME 84.9 fL (81.0-99.0); MONOCYTES % 6.3 % (2.0-8.0); NEUTROPHILS % 65.2 % (40.0-76.0); PLATELET 197 x1000/uL (130-400); RED BLOOD CELL COUNT 3.51 mill/uL (4.2-5.4); RED CELL DISTRIBUTION WIDTH 18.4 % (11.6-14.6)
[2019-01-29] MEDS: INSULIN LISPRO 100 UNITS/ML SUBCUT SCH ×4 (07:40→21:00)
[2019-01-29] MEDS: BLOOD SUGAR DIAGNOSTIC STRIP TEST SCH ×4 (07:45→21:36)
[2019-01-29 08:00] VITALS: BP 169/85
[2019-01-29] MEDS: NICOTINE 14MG PATCH TD SCH (08:11)
[2019-01-29] MEDS: CLONIDINE 0.1MG TABLET PO PRN (08:47)
[2019-01-29] MEDS: AMLODIPINE 5MG TABLET PO SCH ×2 (08:49→21:24)
[2019-01-29] MEDS: HYDROCODONE/ACETAMINOPHEN 5/325MG TABLET PO PRN (10:29)
[2019-01-29] MEDS: DEXT 5%/LACTATED RINGERS 1,000 ML IV SCH ×2 (10:33→21:23)
[2019-01-29 12:00] VITALS: BP 147/64
[2019-01-29] MEDS: LORAZEPAM 2MG/ML CPJ IV PRN (14:56)
[2019-01-29 16:00] VITALS: BP 135/66
[2019-01-29] MEDS ORDERED: LACTULOSE 20G/30ML UDC PO NR (18:45)
[2019-01-29 20:00] VITALS: BP 162/70
[2019-01-29] MEDS: ATORVASTATIN CALCIUM 20MG TABLET PO SCH (21:24)
[2019-01-30] VITALS: BP 159/69
[2019-01-30] MEDS: LORAZEPAM 2MG/ML CPJ IV PRN (00:58)
[2019-01-30 04:00] VITALS: BP 157/66
[2019-01-30] MEDS: BACLOFEN 10MG TABLET PO SCH ×3 (06:41→21:23)
[2019-01-30] MEDS: BLOOD SUGAR DIAGNOSTIC STRIP TEST SCH ×4 (06:52→21:38)
[2019-01-30] MEDS: CEFAZOLIN 1000MG PREMIX 50 ML IV SCH ×3 (06:53→21:24)
[2019-01-30] MEDS: INSULIN LISPRO 100 UNITS/ML SUBCUT SCH ×4 (07:40→21:00)
[2019-01-30 08:00] VITALS: BP 188/96
[2019-01-30] MEDS: NICOTINE 14MG PATCH TD SCH (08:43)
[2019-01-30] MEDS: POLYETHYLENE GLYCOL 3350 (17GM) 1 DOSE PACK PO SCH (08:43)
[2019-01-30] MEDS: AMLODIPINE 5MG TABLET PO SCH ×2 (08:44→21:23)
[2019-01-30] MEDS ORDERED: HYDROMORPHONE HCL/PF 2MG/ML CPJ IV PRN (10:00)
[2019-01-30] MEDS ORDERED: NALOXONE HCL 0.4 MG/ML 1ML VIAL IV PRN (10:00)
[2019-01-30 12:00] VITALS: BP_SYST 164; BP_SYST 188; BP_DIAS 85; BP_DIAS 96
[2019-01-30] MEDS: CLONIDINE 0.1MG TABLET PO PRN (12:11)
[2019-01-30] MEDS: METOPROLOL TARTRATE 25MG TABLET PO SCH ×2 (12:14→21:25)
[2019-01-30] MEDS: HYDROCODONE/ACETAMINOPHEN 5/325MG TABLET PO PRN (12:17)
[2019-01-30] MEDS: DEXT 5%/LACTATED RINGERS 1,000 ML IV SCH (14:59)
[2019-01-30] MEDS: CLONIDINE 0.2MG TABLET PO SCH ×2 (15:09→21:23)
[2019-01-30 16:00] VITALS: BP 180/72
[2019-01-30] MEDS ORDERED: NA PHOS,M-B/NA PHOS,DI-BA ENEMA 118ML PR SCH (18:00)
[2019-01-30 20:00] VITALS: BP 149/73
[2019-01-30] MEDS ORDERED: HEPARIN 5000 UNITS/ML VIAL SUBCUT SCH (21:00)
[2019-01-30] MEDS: ATORVASTATIN CALCIUM 20MG TABLET PO SCH (21:23)
[2019-01-30] MEDS: HYDROMORPHONE HCL/PF 2MG/ML CPJ IV PRN (21:32)
[2019-01-31] VITALS: BP 152/67
[2019-01-31] MEDS: DEXT 5%/LACTATED RINGERS 1,000 ML IV SCH ×2 (03:36→14:43)
[2019-01-31 04:00] VITALS: BP 100/67
[2019-01-31] MEDS: CLONIDINE 0.2MG TABLET PO SCH ×3 (05:55→22:41)
[2019-01-31] MEDS: CEFAZOLIN 1000MG PREMIX 50 ML IV SCH ×3 (06:23→21:43)
[2019-01-31] MEDS: BACLOFEN 10MG TABLET PO SCH ×3 (06:23→22:40)
[2019-01-31] MEDS: BLOOD SUGAR DIAGNOSTIC STRIP TEST SCH ×4 (06:24→21:09)
[2019-01-31 07:14] LABS: BASOPHILS % 0.3 % (0.0-2.0); EOSINOPHILS % 1.1 % (0.0-5.0); HEMATOCRIT. 31.5 % (36.0-48.0); HEMOGLOBIN. 10.4 g/dL (12.0-16.0); LYMPHOCYTES % 24.8 % (20.0-50.0); MEAN CORPUSCULAR HEMOGLOBIN 27.7 pg (28.0-32.0); MEAN CORPUSCULAR VOLUME 83.8 fL (81.0-99.0); MEAN PLATELET VOLUME 8.2 fl (7.4-10.4); MONOCYTES % 9.5 % (2.0-8.0); NEUTROPHILS % 64.3 % (40.0-76.0); PLATELET 182 x1000/uL (130-400); RED BLOOD CELL COUNT 3.76 mill/uL (4.2-5.4); RED CELL DISTRIBUTION WIDTH 18.1 % (11.6-14.6)
[2019-01-31 08:00] VITALS: BP 174/76
[2019-01-31] MEDS: HYDROCODONE/ACETAMINOPHEN 5/325MG TABLET PO PRN ×2 (08:35→12:48)
[2019-01-31] MEDS: INSULIN LISPRO 100 UNITS/ML SUBCUT SCH ×4 (08:36→21:43)
[2019-01-31] MEDS: AMLODIPINE 5MG TABLET PO SCH ×2 (08:37→21:44)
[2019-01-31] MEDS: METOPROLOL TARTRATE 25MG TABLET PO SCH ×2 (08:37→21:43)
[2019-01-31] MEDS: NICOTINE 14MG PATCH TD SCH (08:38)
[2019-01-31] MEDS: HYDROMORPHONE HCL/PF 2MG/ML CPJ IV PRN ×3 (08:42→16:24)
[2019-01-31] MEDS: POLYETHYLENE GLYCOL 3350 (17GM) 1 DOSE PACK PO SCH (08:43)
[2019-01-31] MEDS ORDERED: HYDRALAZINE 20MG/ML VIAL IV PRN (11:45)
[2019-01-31 12:00] VITALS: BP 162/64
[2019-01-31] MEDS ORDERED: SODIUM CHLORIDE 45ML SPRAY NS PRN (12:00)
[2019-01-31] MEDS: NYSTATIN 100,000 UNITS/ML 5ML UDC SSW SCH ×2 (12:48→19:00)
[2019-01-31] MEDS: LOSARTAN POTASSIUM 50 MG TABLET PO SCH ×2 (12:48→21:44)
[2019-01-31] MEDS: HYDRALAZINE HCL 50MG TABLET PO SCH ×2 (14:46→22:40)
[2019-01-31] MEDS: GABAPENTIN 100MG CAPSULE PO SCH ×2 (14:46→22:40)
[2019-01-31] MEDS: DIPHENHYDRAMINE 50MG/ML VIAL IV PRN (15:56)
[2019-01-31 16:00] VITALS: BP 128/57
[2019-01-31] MEDS ORDERED: LORAZEPAM 2MG/ML CPJ IV NR (16:54)
[2019-01-31 20:00] VITALS: BP 135/54
[2019-01-31] MEDS: ATORVASTATIN CALCIUM 20MG TABLET PO SCH (21:44)
[2019-01-31] MEDS: QUETIAPINE FUMARATE 25MG TABLET PO SCH (21:44)
[2019-02-01] VITALS: BP 103/57
[2019-02-01] MEDS: NYSTATIN 100,000 UNITS/ML 5ML UDC SSW SCH ×3 (00:39→13:34)
[2019-02-01 04:00] VITALS: BP 128/52
[2019-02-01] MEDS: CLONIDINE 0.2MG TABLET PO SCH ×2 (05:42→13:40)
[2019-02-01] MEDS: CEFAZOLIN 1000MG PREMIX 50 ML IV SCH ×2 (05:42→13:41)
[2019-02-01] MEDS: BACLOFEN 10MG TABLET PO SCH ×2 (05:43→13:40)
[2019-02-01] MEDS: GABAPENTIN 100MG CAPSULE PO SCH ×2 (05:43→13:42)
[2019-02-01] MEDS: HYDRALAZINE HCL 50MG TABLET PO SCH (05:43)
[2019-02-01] MEDS: DEXT 5%/LACTATED RINGERS 1,000 ML IV SCH (06:45)
[2019-02-01] MEDS: BLOOD SUGAR DIAGNOSTIC STRIP TEST SCH ×2 (06:45→13:30)
[2019-02-01 07:06] LABS: BASOPHILS % 0.4 % (0.0-2.0); EOSINOPHILS % 1.1 % (0.0-5.0); HEMATOCRIT. 25.7 % (36.0-48.0); HEMOGLOBIN. 8.7 g/dL (12.0-16.0); LYMPHOCYTES % 30.7 % (20.0-50.0); MEAN CORPUSCULAR HEMOGLOBIN 28.1 pg (28.0-32.0); MEAN CORPUSCULAR VOLUME 83.2 fL (81.0-99.0); MEAN PLATELET VOLUME 8.4 fl (7.4-10.4); MONOCYTES % 10.1 % (2.0-8.0); NEUTROPHILS % 57.7 % (40.0-76.0); PLATELET 171 x1000/uL (130-400); RED BLOOD CELL COUNT 3.09 mill/uL (4.2-5.4); RED CELL DISTRIBUTION WIDTH 17.6 % (11.6-14.6)
[2019-02-01 08:00] VITALS: BP 159/62
[2019-02-01] MEDS: QUETIAPINE FUMARATE 25MG TABLET PO SCH (08:26)
[2019-02-01] MEDS: AMLODIPINE 5MG TABLET PO SCH (08:26)
[2019-02-01] MEDS: LOSARTAN POTASSIUM 50 MG TABLET PO SCH (08:27)
[2019-02-01] MEDS: NICOTINE 14MG PATCH TD SCH (08:28)
[2019-02-01] MEDS: METOPROLOL TARTRATE 25MG TABLET PO SCH (08:28)
[2019-02-01] MEDS: POLYETHYLENE GLYCOL 3350 (17GM) 1 DOSE PACK PO SCH (08:28)
[2019-02-01] MEDS: INSULIN LISPRO 100 UNITS/ML SUBCUT SCH ×2 (08:29→12:40)
[2019-02-01] MEDS ORDERED: NICO-681 TD (09:40)
[2019-02-01] MEDS ORDERED: HYDR-4135 PO (09:40)
[2019-02-01] MEDS ORDERED: GABA-529 PO (09:40)
[2019-02-01] MEDS ORDERED: METO25TA6 PO (09:40)
[2019-02-01] MEDS ORDERED: CLON0.2T12 PO (09:40)
[2019-02-01] MEDS ORDERED: QUET25TA PO (09:40)
[2019-02-01 12:00] VITALS: BP 134/61
[2019-02-01 13:06] VITALS: BP 134/61
[2019-02-01] MEDS ORDERED: HYDRALAZINE HCL 50MG TABLET PO SCH (14:00)
[2019-02-01 16:00] VITALS: BP 139/63
== END 2019-02-01 17:30 | DRG 321 ==
LOC: ER 11:23 → EDBEDREQ 13:02 → 7WST 14:25 → ENRESERV 14:53 → 7WST 01-25 21:55 → MICUSO 01-26 13:11 → 7WST 01-28 15:01
PROVIDERS: ADMIT Internal Medicine; ATTEND Internal Medicine
PROC: 0RG2071 Fusion of 2 or more Cervical Vertebral Joints with Autologous Tissue Substitute, Posterior Approach, Posterior Column, Open Approach (ICD-10-PCS; principal; 2019-01-26)
PROC: 00NW0ZZ Release Cervical Spinal Cord, Open Approach (ICD-10-PCS; 2019-01-26)
PROC: 01N10ZZ Release Cervical Nerve, Open Approach (ICD-10-PCS; 2019-01-26)
PROC: BR101ZZ Fluoroscopy of Cervical Spine using Low Osmolar Contrast (ICD-10-PCS; 2019-01-26)
DX: M48.02 Spinal stenosis, cervical region (principal); N17.0 Acute kidney failure with tubular necrosis; G82.50 Quadriplegia, unspecified; B37.0 Candidal stomatitis; E11.22 Type 2 diabetes mellitus with diabetic chronic kidney disease; M47.12 Other spondylosis with myelopathy, cervical region; E11.42 Type 2 diabetes mellitus with diabetic polyneuropathy; B19.20 Unspecified viral hepatitis C without hepatic coma; I12.9 Hypertensive chronic kidney disease with stage 1 through stage 4 chronic kidney disease, or unspecified chronic kidney disease; D50.9 Iron deficiency anemia, unspecified; E78.5 Hyperlipidemia, unspecified; G89.29 Other chronic pain; K21.9 Gastro-esophageal reflux disease without esophagitis; N18.9 Chronic kidney disease, unspecified; M54.12 Radiculopathy, cervical region; E78.00 Pure hypercholesterolemia, unspecified; F17.210 Nicotine dependence, cigarettes, uncomplicated; M19.90 Unspecified osteoarthritis, unspecified site; R74.0 Nonspecific elevation of levels of transaminase and lactic acid dehydrogenase [LDH]; M10.9 Gout, unspecified; R41.0 Disorientation, unspecified; Z79.899 Other long term (current) drug therapy; Z88.6 Allergy status to analgesic agent; Z79.84 Long term (current) use of oral hypoglycemic drugs; Z71.6 Tobacco abuse counseling
CPT/HCPCS: 36415; 71045; 72040; 72141; 76000; 78452; 78582; 80048; 80061; 81003; 82550; 82553; 82728; 82962; 83036; 83540; 83550; 83735; 83880; 84134; 84443; 84484; 85379; 88304; 88311; 92610; 93005; 93017; 93306; 93970; 95925; 95926; 95928; 95929; 97163; 97166; 97530; 97535; 99285; 99406; A6261; A9500; A9537; A9558; C1713; J0330; J0360; J0690; J1100; J1170; J1200; J1815; J2060; J2250; J2405; J2704; J2710; J2785; J3010; J3490; J7050; J7121

== ENCOUNTER 2019-03-09 20:14 | Emergency (ER) | payer MEDICAID ==
[~2019-03-09] VITALS: Ht 167.6 cm; Wt 75.0 kg
[~2019-03-09 20:14] MED LIST changes: -AMOX-424 MT; +CLON0.2T12 PO; -DOXY100T2 MT; -FERR325T6 PO; -GABA-290 PO; +GABA-529 PO; -HYDR-4009 MT; +HYDR-4135 PO; -HYDR25TA PO; +METO25TA6 PO; +NICO-681 TD; -OMEP20CA5 PO; +QUET25TA PO
[2019-03-09] MEDS ORDERED: SODIUM CHLORIDE 0.9% 1,000 ML IV ONE (20:37)
[2019-03-09] MEDS ORDERED: ONDANSETRON HCL 4MG/2ML INJ IV STA (20:37)
[2019-03-09 21:21] LABS: BASOPHILS % 0.7 % (0.0-2.0); HEMOGLOBIN. 10.6 g/dL (12.0-16.0); LYMPHOCYTES % 42.1 % (20.0-50.0); MEAN CORPUSCULAR HEMOGLOBIN 28.9 pg (28.0-32.0); MEAN PLATELET VOLUME 7.9 fl (7.4-10.4); MONOCYTES % 8.4 % (2.0-8.0); NEUTROPHILS % 47.8 % (40.0-76.0); PLATELET 219 x1000/uL (130-400); RED BLOOD CELL COUNT 3.68 mill/uL (4.2-5.4); RED CELL DISTRIBUTION WIDTH 18.5 % (11.6-14.6)
[2019-03-09 21:24] LABS: CHLORIDE 107 mEq/L (98-107)
[2019-03-09 21:29] LABS: ETHANOL BLOOD < 10 mg/dL
[2019-03-10 01:55] VITALS: BP 131/62
== END 2019-03-10 02:36 | disposition home or self-care (01) ==
LOC: ER 20:14
DX: R55 Syncope and collapse (principal); N28.9 Disorder of kidney and ureter, unspecified; R11.2 Nausea with vomiting, unspecified; E11.9 Type 2 diabetes mellitus without complications; I10 Essential (primary) hypertension; Z98.1 Arthrodesis status; Z88.5 Allergy status to narcotic agent
CPT/HCPCS: 36415; 71045; 80053; 80320; 83690; 83880; 84484; 85025; 93005; 96360; 99284; J7030; Z7610; G0480

== ENCOUNTER 2019-11-17 21:56 | Inpatient (IN) | payer MEDICAID ==
[~2019-11-17] VITALS: Ht 152.4 cm; Wt 74.4 kg
[~2019-11-17 21:56] MED LIST changes: +SIMV-43 PO; -SIMV20TA6 PO
[2019-11-17 23:25] LABS: BASOPHILS % 0.6 % (0.0-2.0); EOSINOPHILS % 2.2 % (0.0-5.0); HEMATOCRIT. 23.3 % (36.0-48.0); HEMOGLOBIN. 7.9 g/dL (12.0-16.0); LYMPHOCYTES % 51.9 % (20.0-50.0); MEAN CORPUSCULAR HEMOGLOBIN 29.7 pg (28.0-32.0); MEAN PLATELET VOLUME 8.6 fl (7.4-10.4); MONOCYTES % 8.7 % (2.0-8.0); NEUTROPHILS % 36.6 % (40.0-76.0); PLATELET 156 x1000/uL (130-400); RED BLOOD CELL COUNT 2.65 mill/uL (4.2-5.4); RED CELL DISTRIBUTION WIDTH 17.1 % (11.6-14.6)
[2019-11-17 23:31] LABS: CHLORIDE 121 mEq/L (98-107)
[2019-11-17] MEDS ORDERED: CALCIUM GLUCONATE 100MG/ML 10ML VIAL IV ONE (23:45)
[2019-11-18] MEDS ORDERED: DIPHENHYDRAMINE 50MG/ML VIAL IV PRN (00:30)
[2019-11-18] MEDS ORDERED: IPRATROPIUM/ALBUTEROL 0.5-3(2.5)MG/3ML NEB NEB PRN (00:30)
[2019-11-18] MEDS ORDERED: LORAZEPAM 2MG/ML CPJ IV PRN (00:30)
[2019-11-18] MEDS ORDERED: NA PHOS,M-B/NA PHOS,DI-BA ENEMA 118ML PR PRN (00:30)
[2019-11-18] MEDS ORDERED: ONDANSETRON HCL 4MG/2ML INJ IV PRN (00:30)
[2019-11-18] MEDS ORDERED: GUAIFENESIN 200MG/10ML SUGAR FREE UDC PO PRN (00:30)
[2019-11-18] MEDS ORDERED: ACETAMINOPHEN 325MG TABLET PO PRN (00:30)
[2019-11-18] MEDS ORDERED: MORPHINE SULFATE 2 MG/ML CPJ (NOT FOR IM USE) IV PRN (00:30)
[2019-11-18] MEDS ORDERED: FUROSEMIDE 40MG/4ML VIAL IVP ONE (01:45)
[2019-11-18] MEDS ORDERED: ASPIRIN 81MG EC TABLET PO SCH (09:00)
[2019-11-18 09:47] VITALS: BP 178/86
[2019-11-18] MEDS ORDERED: DEXTROSE 50% WATER 50ML SYRINGE IV PRN (12:00)
[2019-11-18] MEDS: BLOOD SUGAR DIAGNOSTIC STRIP TEST SCH ×3 (12:04→20:23)
[2019-11-18] MEDS: INSULIN LISPRO 100 UNITS/ML SUBCUT SCH ×3 (12:09→20:23)
[2019-11-18] MEDS: ENOXAPARIN 30MG/0.3ML SYR SUBCUT SCH (12:09)
[2019-11-18] MEDS: CLONIDINE 0.1MG TABLET PO PRN (12:09)
[2019-11-18] MEDS ORDERED: NIFEDIPINE XL 30MG TAB PO SCH (13:00)
[2019-11-18] MEDS: SODIUM POLYSTYRENE SULFONATE 15 G/60 ML BOT PO NR ×2 (13:52→13:55)
[2019-11-18 17:13] LABS: CREATINE KINASE 48 IU/L (26-192)
[2019-11-18 22:16] VITALS: BP 146/60
[2019-11-19 00:47] LABS: CREATINE KINASE 69 IU/L (26-192)
[2019-11-19 02:47] LABS: CLARITY URINE CLEAR (CLEAR); COLOR URINE YELLOW (YELLOW); KETONES URINE NEGATIVE (NEGATIVE); LEUKOCYTE ESTERASE URINE NEGATIVE (NEGATIVE); NITRITE URINE NEGATIVE (NEGATIVE); OCCULT BLOOD URINE 2+ (NEGATIVE); PH URINE 7.5 (4.5-8.0); PROTEIN URINE 3+ (NEGATIVE); SPECIFIC GRAVITY URINE 1.009 (1.005-1.030); UROBILINOGEN URINE 0.2 E.U./dL (0.2-1.0)
[2019-11-19 04:00] VITALS: BP 148/68
[2019-11-19] MEDS: BLOOD SUGAR DIAGNOSTIC STRIP TEST SCH ×3 (07:45→20:21)
[2019-11-19] MEDS: INSULIN LISPRO 100 UNITS/ML SUBCUT SCH ×3 (07:50→20:22)
[2019-11-19 08:00] VITALS: BP 135/54
[2019-11-19] MEDS: FUROSEMIDE 40MG/4ML VIAL IV SCH (09:37)
[2019-11-19] MEDS: NIFEDIPINE XL 60MG TAB PO SCH (09:38)
[2019-11-19] MEDS: ENOXAPARIN 30MG/0.3ML SYR SUBCUT SCH (09:38)
[2019-11-19 12:00] VITALS: BP 148/62
[2019-11-19 12:17] LABS: BASOPHILS % 0.5 % (0.0-2.0); EOSINOPHILS % 1.2 % (0.0-5.0); HEMATOCRIT. 24.9 % (36.0-48.0); HEMOGLOBIN. 8.2 g/dL (12.0-16.0); LYMPHOCYTES % 39.9 % (20.0-50.0); MEAN CORPUSCULAR HEMOGLOBIN 28.7 pg (28.0-32.0); MEAN CORPUSCULAR VOLUME 87.5 fL (81.0-99.0); MEAN PLATELET VOLUME 8.4 fl (7.4-10.4); MONOCYTES % 8.3 % (2.0-8.0); NEUTROPHILS % 50.1 % (40.0-76.0); PLATELET 146 x1000/uL (130-400); RED BLOOD CELL COUNT 2.85 mill/uL (4.2-5.4); RED CELL DISTRIBUTION WIDTH 16.8 % (11.6-14.6)
[2019-11-19 12:45] LABS: CHLORIDE 114 mEq/L (98-107)
[2019-11-19 12:54] LABS: LDL CHOLESTEROL 61 mg/dL (5-100)
[2019-11-19 12:55] LABS: CREATINE KINASE 47 IU/L (26-192); CREATINE KINASE MB FRACTION 1.2 ng/mL (0.5-3.6); HDL CHOLESTEROL 44 mg/dL (40-59)
[2019-11-19 16:00] VITALS: BP 155/66
[2019-11-19 20:00] VITALS: BP 167/83
[2019-11-20] VITALS: BP 128/78
[2019-11-20] MEDS: CLONIDINE 0.1MG TABLET PO PRN ×2 (06:11→13:17)
[2019-11-20 06:37] LABS: BASOPHILS % 0.4 % (0.0-2.0); EOSINOPHILS % 1.2 % (0.0-5.0); HEMATOCRIT. 25.9 % (36.0-48.0); HEMOGLOBIN. 8.6 g/dL (12.0-16.0); LYMPHOCYTES % 46.3 % (20.0-50.0); MEAN CORPUSCULAR HEMOGLOBIN 29.1 pg (28.0-32.0); MEAN CORPUSCULAR VOLUME 87.1 fL (81.0-99.0); MEAN PLATELET VOLUME 8.5 fl (7.4-10.4); MONOCYTES % 8.1 % (2.0-8.0); PLATELET 149 x1000/uL (130-400); RED BLOOD CELL COUNT 2.97 mill/uL (4.2-5.4); RED CELL DISTRIBUTION WIDTH 16.5 % (11.6-14.6)
[2019-11-20] MEDS: BLOOD SUGAR DIAGNOSTIC STRIP TEST SCH ×4 (07:38→20:43)
[2019-11-20] MEDS: INSULIN LISPRO 100 UNITS/ML SUBCUT SCH ×4 (07:38→20:43)
[2019-11-20 08:00] VITALS: BP 143/65
[2019-11-20] MEDS: ENOXAPARIN 30MG/0.3ML SYR SUBCUT SCH (09:04)
[2019-11-20] MEDS: FUROSEMIDE 40MG/4ML VIAL IV SCH (09:04)
[2019-11-20] MEDS: NIFEDIPINE XL 60MG TAB PO SCH (09:04)
[2019-11-20] MEDS ORDERED: HYDROCODONE/ACETAMINOPHEN 5/325MG TABLET PO PRN (10:30)
[2019-11-20] MEDS: HYDROCODONE/ACETAMINOPHEN 5/325MG TABLET PO PRN (10:48)
[2019-11-20 12:00] VITALS: BP 165/68
[2019-11-20 16:00] VITALS: BP 119/74
[2019-11-20 20:00] VITALS: BP 122/54
[2019-11-21] VITALS: BP 157/83
[2019-11-21 04:00] VITALS: BP 122/54
[2019-11-21] MEDS ORDERED: METH-612 MT (05:31)
[2019-11-21] MEDS ORDERED: DIPH50CA38 MT (05:33)
[2019-11-21] MEDS ORDERED: ASPI-1497 MT (05:41)
[2019-11-21] MEDS ORDERED: TOPI200T15 MT (05:42)
[2019-11-21] MEDS ORDERED: HYDR50TA55 PO (05:43)
[2019-11-21] MEDS ORDERED: HYDR-4001 MT (05:46)
[2019-11-21] MEDS ORDERED: HALO2TAB MT (05:46)
[2019-11-21] MEDS ORDERED: OMEP20TA2 MT (05:47)
[2019-11-21] MEDS ORDERED: PARO30TA62 MT (05:48)
[2019-11-21] MEDS: INSULIN LISPRO 100 UNITS/ML SUBCUT SCH ×4 (07:50→21:00)
[2019-11-21 08:00] VITALS: BP 152/70
[2019-11-21] MEDS: BLOOD SUGAR DIAGNOSTIC STRIP TEST SCH ×4 (08:15→21:52)
[2019-11-21] MEDS: HYDROCODONE/ACETAMINOPHEN 5/325MG TABLET PO PRN ×3 (08:22→22:53)
[2019-11-21] MEDS: NIFEDIPINE XL 60MG TAB PO SCH (08:24)
[2019-11-21] MEDS: ENOXAPARIN 30MG/0.3ML SYR SUBCUT SCH (08:24)
[2019-11-21] MEDS ORDERED: FUROSEMIDE 20MG/2ML VIAL IV SCH (09:00)
[2019-11-21 10:36] LABS: HEMATOCRIT. 30.7 % (36.0-48.0); HEMOGLOBIN. 10.1 g/dL (12.0-16.0); MEAN CORPUSCULAR HEMOGLOBIN 29.2 pg (28.0-32.0); MEAN CORPUSCULAR VOLUME 88.6 fL (81.0-99.0); MEAN PLATELET VOLUME 8.9 fl (7.4-10.4); PLATELET 175 x1000/uL (130-400); RED BLOOD CELL COUNT 3.46 mill/uL (4.2-5.4); RED CELL DISTRIBUTION WIDTH 17.2 % (11.6-14.6)
[2019-11-21 11:24] LABS: PLATELET ESTIMATE NORMAL
[2019-11-21 12:19] VITALS: BP 112/56
[2019-11-21] MEDS: DOCUSATE SODIUM 100MG CAPSULE PO PRN ×2 (12:52→22:57)
[2019-11-21 14:40] LABS: CREATINE KINASE 52 IU/L (26-192)
[2019-11-21 16:20] VITALS: BP 108/58
[2019-11-21 22:01] VITALS: BP 135/60
[2019-11-22] VITALS: BP 138/64
[2019-11-22 04:00] VITALS: BP 147/89
[2019-11-22] MEDS: BLOOD SUGAR DIAGNOSTIC STRIP TEST SCH ×2 (07:20→12:20)
[2019-11-22 07:42] VITALS: BP 132/63
[2019-11-22] MEDS: INSULIN LISPRO 100 UNITS/ML SUBCUT SCH ×2 (07:50→12:50)
[2019-11-22] MEDS ORDERED: GABAPENTIN 100MG CAPSULE PO SCH ×2 (08:00→14:00)
[2019-11-22] MEDS ORDERED: BACLOFEN 10MG TABLET PO SCH (08:00)
[2019-11-22] MEDS: NIFEDIPINE XL 60MG TAB PO SCH (08:58)
[2019-11-22] MEDS: ENOXAPARIN 30MG/0.3ML SYR SUBCUT SCH (09:12)
[2019-11-22] MEDS ORDERED: OMEPRAZOLE 20MG CAPSULE EXTENDED RELEASE PO SCH (09:15)
[2019-11-22] MEDS: HYDROCODONE/ACETAMINOPHEN 5/325MG TABLET PO PRN (11:12)
[2019-11-22 11:57] VITALS: BP 160/80
[2019-11-22] MEDS ORDERED: PAROXETINE HCL 10MG TABLET PO SCH (13:00)
[2019-11-22 13:26] VITALS: BP 160/80
[2019-11-22] MEDS ORDERED: METHOCARBAMOL 750MG TABLET PO PRN (14:00)
[2019-11-23 04:07] LABS: ANTI-NUCLEAR ANTIBODIES DIRECT Negative (Negative)
== END 2019-11-22 16:05 | disposition home or self-care (01) | DRG 194 ==
LOC: ER 21:56 → MICUSO 23:05 → 6WST 11-18 07:40
PROVIDERS: ADMIT Internal Medicine; ATTEND Internal Medicine
DX: I13.0 Hypertensive heart and chronic kidney disease with heart failure and stage 1 through stage 4 chronic kidney disease, or unspecified chronic kidney disease (principal); E11.22 Type 2 diabetes mellitus with diabetic chronic kidney disease; E87.5 Hyperkalemia; N17.0 Acute kidney failure with tubular necrosis; I50.43 Acute on chronic combined systolic (congestive) and diastolic (congestive) heart failure; D64.9 Anemia, unspecified; N32.89 Other specified disorders of bladder; N28.1 Cyst of kidney, acquired; F12.90 Cannabis use, unspecified, uncomplicated; F17.210 Nicotine dependence, cigarettes, uncomplicated; N18.9 Chronic kidney disease, unspecified; B19.20 Unspecified viral hepatitis C without hepatic coma; E78.5 Hyperlipidemia, unspecified; Z79.899 Other long term (current) drug therapy; Z88.5 Allergy status to narcotic agent; Z71.6 Tobacco abuse counseling; E44.1 Mild protein-calorie malnutrition
CPT/HCPCS: 36415; 76770; 80048; 80053; 80061; 81003; 82550; 82553; 82962; 83036; 83880; 84439; 84443; 84484; 85025; 85379; 86038; 86160; 93005; 93306; 97162; 99285; J0610; J1650; J1940

== ENCOUNTER 2020-01-02 13:54 | Inpatient (IN) | payer MEDICAID ==
[~2020-01-02] VITALS: Ht 167.6 cm; Wt 75.8 kg
[~2020-01-02 13:54] MED LIST changes: +ASPI-1497 MT; +DIPH50CA38 MT; +HALO2TAB MT; +HYDR-4001 MT; +HYDR50TA55 PO; +METH-612 MT; +OMEP20TA2 MT; +PARO30TA62 MT; +TOPI200T15 MT
[2020-01-02] MEDS ORDERED: ONDANSETRON HCL 4MG/2ML INJ IV STA (14:51)
[2020-01-02] MEDS ORDERED: SODIUM CHLORIDE 0.9% 250 ML IV ONE (15:00)
[2020-01-02 15:27] LABS: CHLORIDE 111 mEq/L (98-107)
[2020-01-02 15:37] LABS: BASOPHILS % 0.9 % (0.0-2.0); EOSINOPHILS % 2.6 % (0.0-5.0); HEMATOCRIT. 24.5 % (36.0-48.0); HEMOGLOBIN. 8.3 g/dL (12.0-16.0); LYMPHOCYTES % 40.1 % (20.0-50.0); MEAN CORPUSCULAR VOLUME 86.1 fL (81.0-99.0); MEAN PLATELET VOLUME 8.3 fl (7.4-10.4); MONOCYTES % 6.3 % (2.0-8.0); NEUTROPHILS % 50.1 % (40.0-76.0); PLATELET 205 x1000/uL (130-400); RED BLOOD CELL COUNT 2.85 mill/uL (4.2-5.4); RED CELL DISTRIBUTION WIDTH 15.7 % (11.6-14.6)
[2020-01-02] MEDS ORDERED: DEXTROSE 50% WATER 50ML SYRINGE IV NR (17:15)
[2020-01-02] MEDS ORDERED: CALCIUM CHLORIDE 1GM/10ML SYR IV NR (17:15)
[2020-01-02] MEDS ORDERED: INSULIN REGULAR (HUMULIN R) 300UNITS/3ML IV NR (17:15)
[2020-01-02] MEDS ORDERED: SODIUM BICARBONATE 8.4% 1 MEQ/ML 50ML SYR IV NR (17:15)
[2020-01-02 22:15] VITALS: BP 120/50
[2020-01-02] MEDS ORDERED: ONDANSETRON HCL 4MG/2ML INJ IV PRN (23:15)
[2020-01-02] MEDS ORDERED: ACETAMINOPHEN 325MG TABLET PO PRN (23:15)
[2020-01-03] VITALS (14 sets, daily range): BP systolic 137–186; BP diastolic 57–90
[2020-01-03] MEDS ORDERED: SODIUM POLYSTYRENE SULFONATE 15 G/60 ML BOT PO NR
[2020-01-03] MEDS: SODIUM CHLORIDE 0.9% 1,000 ML IV SCH ×2 (00:03→11:31)
[2020-01-03] MEDS: IPRATROPIUM/ALBUTEROL 0.5-3(2.5)MG/3ML NEB NEB SCH (00:45)
[2020-01-03] MEDS: CLONIDINE 0.1MG TABLET PO PRN ×2 (01:17→05:58)
[2020-01-03 05:32] LABS: BASOPHILS % 0.4 % (0.0-2.0); EOSINOPHILS % 0.9 % (0.0-5.0); HEMATOCRIT. 22.1 % (36.0-48.0); HEMOGLOBIN. 7.3 g/dL (12.0-16.0); LYMPHOCYTES % 48.4 % (20.0-50.0); MEAN CORPUSCULAR HEMOGLOBIN 29.1 pg (28.0-32.0); MEAN CORPUSCULAR VOLUME 87.4 fL (81.0-99.0); MEAN PLATELET VOLUME 8.3 fl (7.4-10.4); MONOCYTES % 5.8 % (2.0-8.0); NEUTROPHILS % 44.5 % (40.0-76.0); PLATELET 167 x1000/uL (130-400); RED BLOOD CELL COUNT 2.52 mill/uL (4.2-5.4); RED CELL DISTRIBUTION WIDTH 15.6 % (11.6-14.6)
[2020-01-03 05:44] LABS: LDL CHOLESTEROL 58 mg/dL (5-100)
[2020-01-03 05:45] LABS: HDL CHOLESTEROL 57 mg/dL (40-59)
[2020-01-03 05:46] LABS: CREATINE KINASE 38 IU/L (26-192)
[2020-01-03 05:47] LABS: CREATINE KINASE MB FRACTION 1.2 ng/mL (0.5-3.6)
[2020-01-03 07:18] LABS: CLARITY URINE CLEAR (CLEAR); COLOR URINE YELLOW (YELLOW); KETONES URINE NEGATIVE (NEGATIVE); LEUKOCYTE ESTERASE URINE NEGATIVE (NEGATIVE); NITRITE URINE NEGATIVE (NEGATIVE); OCCULT BLOOD URINE NEGATIVE (NEGATIVE); PH URINE 6.5 (4.5-8.0); PROTEIN URINE 3+ (NEGATIVE); SPECIFIC GRAVITY URINE 1.011 (1.005-1.030); UROBILINOGEN URINE 0.2 E.U./dL (0.2-1.0)
[2020-01-03 08:04] LABS: *AMPHETAMINES SCREEN URINE NEGATIVE (NEGATIVE); *BARBITURATES SCREEN URINE NEGATIVE (NEGATIVE); *BENZODIAZEPINES SCREEN URINE NEGATIVE (NEGATIVE); *COCAINE SCREEN URINE NEGATIVE (NEGATIVE); METHADONE URINE SCREEN NEGATIVE (NEGATIVE); OPIATES URINE SCREEN NEGATIVE (NEGATIVE)
[2020-01-03 08:05] LABS: CANNABINOID URINE SCREEN PRESUMTIVE POSITIVE (NEGATIVE); PHENCYCLIDINE URINE SCREEN NEGATIVE (NEGATIVE)
[2020-01-03] MEDS: HEPARIN 5000 UNITS/ML VIAL SUBCUT SCH ×2 (09:27→21:50)
[2020-01-03] MEDS ORDERED: DEXTROSE 50% WATER 50ML SYRINGE IV PRN ×2 (10:15→17:30)
[2020-01-03] MEDS: AMLODIPINE 10MG TABLET PO SCH (11:31)
[2020-01-03] MEDS ORDERED: BLOOD SUGAR DIAGNOSTIC STRIP TEST SCH (11:50)
[2020-01-03] MEDS: HYDROCODONE/ACETAMINOPHEN 5/325MG TABLET PO PRN (11:51)
[2020-01-03] MEDS ORDERED: INSULIN LISPRO 100 UNITS/ML SUBCUT SCH (12:20)
[2020-01-03 12:27] LABS: CREATINE KINASE 53 IU/L (26-192)
[2020-01-03] MEDS ORDERED: soma (12:41)
[2020-01-03] MEDS: HYDRALAZINE HCL 50MG TABLET PO SCH ×2 (13:31→21:50)
[2020-01-03] MEDS: CLONIDINE 0.2MG TABLET PO SCH ×2 (14:46→21:50)
[2020-01-03] MEDS ORDERED: CYCLOBENZAPRINE 10MG TABLET PO PRN (15:15)
[2020-01-03 15:32] LABS: CREATINE KINASE 35 IU/L (26-192)
[2020-01-03 15:33] LABS: CREATINE KINASE MB FRACTION < 1.0 ng/mL (0.5-3.6)
[2020-01-03 15:57] LABS: TOTAL IRON BINDING CAPACITY 236 ug/dL (250-450)
[2020-01-03] MEDS: DOCUSATE SODIUM 100MG CAPSULE PO SCH (17:00)
[2020-01-03 17:13] LABS: FOLIC ACID (FOLATE) SERUM 7.2 ng/mL (>5.38)
[2020-01-03] MEDS: INSULIN LISPRO 100 UNITS/ML SUBCUT SCH (21:00)
[2020-01-03] MEDS: BLOOD SUGAR DIAGNOSTIC STRIP TEST SCH (21:00)
[2020-01-03] MEDS: QUETIAPINE FUMARATE 25MG TABLET PO SCH ×2 (21:00→21:49)
[2020-01-03] MEDS: METOPROLOL TARTRATE 25MG TABLET PO SCH (21:49)
[2020-01-03] MEDS: LOSARTAN POTASSIUM 50 MG TABLET PO SCH (21:49)
[2020-01-03] MEDS: TOPIRAMATE 100MG TABLET PO SCH (21:49)
[2020-01-04 00:07] VITALS: BP 167/73
[2020-01-04] MEDS: IPRATROPIUM/ALBUTEROL 0.5-3(2.5)MG/3ML NEB NEB SCH ×3 (00:42→13:31)
[2020-01-04] MEDS: CLONIDINE 0.1MG TABLET PO PRN (00:51)
[2020-01-04 02:00] VITALS: BP 171/76
[2020-01-04] MEDS: SODIUM CHLORIDE 0.9% 1,000 ML IV SCH (03:25)
[2020-01-04 04:00] VITALS: BP 178/74
[2020-01-04] MEDS: CLONIDINE 0.2MG TABLET PO SCH (05:55)
[2020-01-04] MEDS: HYDRALAZINE HCL 50MG TABLET PO SCH (05:55)
[2020-01-04] MEDS: HYDROCODONE/ACETAMINOPHEN 5/325MG TABLET PO PRN (05:55)
[2020-01-04 06:00] VITALS: BP 150/74
[2020-01-04] MEDS ORDERED: OMEPRAZOLE 20MG CAPSULE EXTENDED RELEASE PO SCH (06:50)
[2020-01-04] MEDS: BLOOD SUGAR DIAGNOSTIC STRIP TEST SCH ×2 (06:50→11:50)
[2020-01-04] MEDS: INSULIN LISPRO 100 UNITS/ML SUBCUT SCH ×2 (07:20→12:20)
[2020-01-04 08:00] VITALS: BP 148/61
[2020-01-04] MEDS ORDERED: ASPIRIN 81MG EC TABLET PO SCH (09:00)
[2020-01-04] MEDS: DOCUSATE SODIUM 100MG CAPSULE PO SCH (09:00)
[2020-01-04] MEDS: LOSARTAN POTASSIUM 50 MG TABLET PO SCH (09:00)
[2020-01-04] MEDS: AMLODIPINE 10MG TABLET PO SCH (09:00)
[2020-01-04] MEDS: HEPARIN 5000 UNITS/ML VIAL SUBCUT SCH (09:00)
[2020-01-04] MEDS: TOPIRAMATE 100MG TABLET PO SCH (09:00)
[2020-01-04] MEDS: METOPROLOL TARTRATE 25MG TABLET PO SCH (09:00)
[2020-01-04] MEDS ORDERED: PAROXETINE HCL 10MG TABLET PO SCH (09:00)
[2020-01-04] MEDS ORDERED: NICOTINE 14MG PATCH TD SCH (09:00)
[2020-01-04] MEDS: QUETIAPINE FUMARATE 25MG TABLET PO SCH (09:00)
[2020-01-05 15:06] LABS: ANTI-NUCLEAR ANTIBODIES DIRECT Negative (Negative)
== END 2020-01-04 15:30 | disposition home or self-care (01) | DRG 469 ==
LOC: ER 14:04 → 6WST 20:09 → EDBEDREQ 20:11 → EDBEDREQTM 20:11 → ENRESERV 20:54 → 3WST 01-03 00:28
PROVIDERS: ADMIT Internal Medicine; ATTEND Internal Medicine
DX: N17.0 Acute kidney failure with tubular necrosis (principal); E87.5 Hyperkalemia; I16.0 Hypertensive urgency; I50.42 Chronic combined systolic (congestive) and diastolic (congestive) heart failure; E11.22 Type 2 diabetes mellitus with diabetic chronic kidney disease; N18.9 Chronic kidney disease, unspecified; K80.20 Calculus of gallbladder without cholecystitis without obstruction; E78.5 Hyperlipidemia, unspecified; B19.20 Unspecified viral hepatitis C without hepatic coma; N20.0 Calculus of kidney; R80.9 Proteinuria, unspecified; I13.0 Hypertensive heart and chronic kidney disease with heart failure and stage 1 through stage 4 chronic kidney disease, or unspecified chronic kidney disease; E78.00 Pure hypercholesterolemia, unspecified; D64.9 Anemia, unspecified; F12.90 Cannabis use, unspecified, uncomplicated; M10.9 Gout, unspecified; E44.0 Moderate protein-calorie malnutrition; Z68.27 Body mass index [BMI] 27.0-27.9, adult; Z79.84 Long term (current) use of oral hypoglycemic drugs; Z88.6 Allergy status to analgesic agent
CPT/HCPCS: 36415; 71045; 74176; 76770; 76830; 76856; 80048; 80053; 80061; 80305; 81003; 82550; 82553; 82570; 82607; 82728; 82746; 82962; 83036; 83540; 83550; 83880; 84156; 84443; 84484; 85025; 86038; 86160; 93005; 93970; 94640; 96374; 99291; J1644; J1815; J2405; J3490; J7030

== ENCOUNTER 2020-07-07 19:53 | Inpatient (IN) | payer OTHER ==
[~2020-07-07] VITALS: Ht 162.6 cm; Wt 73.9 kg
[~2020-07-07 19:53] MED LIST changes: -BACL-141 PO; +CARI350T27 MT; -CLON0.2T12 PO; -DIPH50CA38 MT; +FAMO20TA8 PO; -HYDR50TA55 PO; -LOSA50TA3 PO; -METH-612 MT; +METH-774 PO; -METO25TA6 PO; +NITR0.4T49 SL; +TRAM50TA3 MT
[2020-07-07] MEDS ORDERED: SODIUM CHLORIDE 0.9% 1,000 ML IV ONE (20:45)
[2020-07-07 21:34] LABS: BASOPHILS % 0.2 % (0.0-2.0); LYMPHOCYTES % 8.5 % (20.0-50.0); MEAN CORPUSCULAR HEMOGLOBIN 28.1 pg (28.0-32.0); MEAN CORPUSCULAR VOLUME 88.7 fL (81.0-99.0); MEAN PLATELET VOLUME 9.4 fl (7.4-10.4); MONOCYTES % 3.6 % (2.0-8.0); NEUTROPHILS % 87.7 % (40.0-76.0); PLATELET 92 x1000/uL (130-400); RED CELL DISTRIBUTION WIDTH 19.6 % (11.6-14.6)
[2020-07-07 21:37] LABS: HEMOGLOBIN. 3.6 g/dL (12.0-16.0)
[2020-07-07 21:38] LABS: HEMATOCRIT. 11.5 % (36.0-48.0)
[2020-07-07 21:41] LABS: CHLORIDE 127 mEq/L (98-107)
[2020-07-07] MEDS ORDERED: ALBUTEROL (0.083%) 2.5MG/3ML NEB HHN NR (22:30)
[2020-07-07] MEDS ORDERED: DEXTROSE 50% WATER 50ML SYRINGE IV ONE (22:30)
[2020-07-07] MEDS ORDERED: INSULIN REGULAR (HUMULIN R) 300UNITS/3ML VIAL IV NR (22:30)
[2020-07-07] MEDS ORDERED: SODIUM BICARBONATE 8.4% 1 MEQ/ML 50ML SYR IV NR (22:30)
[2020-07-07] MEDS ORDERED: CALCIUM GLUCONATE 100MG/ML 10ML VIAL IV NR (22:30)
[2020-07-08] VITALS (77 sets, daily range): BP systolic 59–181; BP diastolic 24–97
[2020-07-08] MEDS ORDERED: AZITHROMYCIN 500 MG in DEXT 5% WATER 250 ML IV ONE (00:30)
[2020-07-08] MEDS ORDERED: CEFTRIAXONE 1 G PREMIX 50 ML IV ONE (00:30)
[2020-07-08] MEDS ORDERED: DEXAMETHASONE 4MG/ML 1ML VIAL IV ONE (00:30)
[2020-07-08] MEDS ORDERED: LORAZEPAM 2MG/ML CPJ IV ONE (00:45)
[2020-07-08 01:16] LABS: CHLORIDE 128 mEq/L (98-107)
[2020-07-08 01:53] LABS: BG FRACTION INSPIRED OXYGEN 21; BG PH 7.208 (7.350-7.450); BG PO2 35.7 mmHg (75.0-100.0); BG SAMPLE SITE Other; BG TOTAL HEMOGLOBIN < 4.5 g/dL (12.0-18.0); BG VENT MODE ROOM AIR
[2020-07-08] MEDS ORDERED: OLANZAPINE 10 MG/VIAL IM ONE (03:30)
[2020-07-08] MEDS ORDERED: DEXT 5%/0.45% NACL 1000ML 1,000 ML IV SCH (06:15)
[2020-07-08 06:18] LABS: BASOPHILS % 0.1 % (0.0-2.0); LYMPHOCYTES % 12.9 % (20.0-50.0); MEAN CORPUSCULAR HEMOGLOBIN 27.9 pg (28.0-32.0); MEAN CORPUSCULAR VOLUME 94.3 fL (81.0-99.0); MEAN PLATELET VOLUME 9.1 fl (7.4-10.4); MONOCYTES % 3.9 % (2.0-8.0); NEUTROPHILS % 83.1 % (40.0-76.0); PLATELET 87 x1000/uL (130-400); RED BLOOD CELL COUNT 1.72 mill/uL (4.2-5.4); RED CELL DISTRIBUTION WIDTH 17.8 % (11.6-14.6)
[2020-07-08 06:27] LABS: HEMOGLOBIN. 4.8 g/dL (12.0-16.0)
[2020-07-08 06:30] LABS: HEMATOCRIT. 16.2 % (36.0-48.0)
[2020-07-08] MEDS ORDERED: LIDOCAINE HCL 1% 20ML VIAL (Pyxis) INJ ONE (08:22)
[2020-07-08] MEDS ORDERED: SODIUM BICARBONATE 8.4% 1 MEQ/ML 50ML SYR IV NR (09:15)
[2020-07-08] MEDS ORDERED: LORAZEPAM 2MG/ML CPJ IV SCH (09:30)
[2020-07-08] MEDS ORDERED: MORPHINE SULFATE 4 MG/ML CPJ (NOT FOR IM USE) IV SCH (09:30)
[2020-07-08] MEDS ORDERED: SODIUM POLYSTYRENE SULFONATE 15 G/60 ML BOT PO NR (10:00)
[2020-07-08] MEDS ORDERED: HEPARIN 1000 UNITS/ML 10ML ONE (10:20)
[2020-07-08] MEDS ORDERED: SODIUM BICARBONATE 100 MEQ in DEXTROSE 5% WATER 1,000 ML IV SCH (11:00)
[2020-07-08] MEDS ORDERED: NOREPINEPHRINE 32 MG in DEXT 5% WATER 218 ML IV PRN (11:15)
[2020-07-08 16:30] LABS: BASOPHILS % 0.1 % (0.0-2.0); HEMATOCRIT. 23.1 % (36.0-48.0); HEMOGLOBIN. 7.8 g/dL (12.0-16.0); LYMPHOCYTES % 16.6 % (20.0-50.0); MEAN CORPUSCULAR HEMOGLOBIN 28.8 pg (28.0-32.0); MEAN CORPUSCULAR VOLUME 85.1 fL (81.0-99.0); MEAN PLATELET VOLUME 9.4 fl (7.4-10.4); NEUTROPHILS % 79.3 % (40.0-76.0); PLATELET 103 x1000/uL (130-400); RED BLOOD CELL COUNT 2.71 mill/uL (4.2-5.4); RED CELL DISTRIBUTION WIDTH 15.7 % (11.6-14.6)
[2020-07-08 16:31] LABS: CHLORIDE 110 mEq/L (98-107)
[2020-07-08 16:39] LABS: PARTIAL THROMBOPLASTIN TIME 25.9 sec (23.4-31.0); PROTHROMBIN TIME 10.6 sec (9.6-11.0)
[2020-07-08 17:22] LABS: BG BASE EXCESS 6.3 mmol/L (-2.0-2.0); BG CARBOXYHEMOGLOBIN 0.2 % (0.5-1.5); BG FRACTION INSPIRED OXYGEN 21; BG METHEMOGLOBIN 0.1 % (0.0-1.5); BG OXYHEMOGLOBIN 96.7 % (94.0-97.0); BG PCO2 26.9 mmHg (35.0-45.0); BG PH 7.636 (7.350-7.450); BG PO2 81.1 mmHg (75.0-100.0); BG SAMPLE SITE RIGHT RADIAL; BG TOTAL HEMOGLOBIN 5.3 g/dL (12.0-18.0); BG VENT MODE ROOM AIR
[2020-07-08 17:42] LABS: FOLIC ACID (FOLATE) SERUM 4.9 ng/mL (>5.38)
[2020-07-08] MEDS ORDERED: VANCOMYCIN 1500MG in DEXTROSE 5% WATER 250ML IV NR (18:00)
[2020-07-08] MEDS: PANTOPRAZOLE SODIUM 40 MG/VIAL IV SCH (18:08)
[2020-07-08] MEDS: SODIUM CHLORIDE 0.9% 1,000 ML IV SCH (18:09)
[2020-07-08 18:45] LABS: HAPTOGLOBIN 123 mg/dL (30-200)
[2020-07-08] MEDS ORDERED: AZTREONAM 2 GM in DEXT 5% WATER 100 ML IV NR (20:00)
[2020-07-08 20:28] LABS: CLARITY URINE CLEAR (CLEAR); COLOR URINE YELLOW (YELLOW); KETONES URINE NEGATIVE (NEGATIVE); LEUKOCYTE ESTERASE URINE NEGATIVE (NEGATIVE); NITRITE URINE NEGATIVE (NEGATIVE); OCCULT BLOOD URINE NEGATIVE (NEGATIVE); PH URINE 5.5 (4.5-8.0); PROTEIN URINE 2+ (NEGATIVE); SPECIFIC GRAVITY URINE 1.012 (1.005-1.030); UROBILINOGEN URINE 0.2 E.U./dL (0.2-1.0)
[2020-07-08 20:55] LABS: *AMPHETAMINES SCREEN URINE NEGATIVE (NEGATIVE); *BARBITURATES SCREEN URINE NEGATIVE (NEGATIVE); *BENZODIAZEPINES SCREEN URINE NEGATIVE (NEGATIVE); *COCAINE SCREEN URINE NEGATIVE (NEGATIVE); CANNABINOID URINE SCREEN NEGATIVE (NEGATIVE)
[2020-07-08 20:56] LABS: METHADONE URINE SCREEN NEGATIVE (NEGATIVE); OPIATES URINE SCREEN NEGATIVE (NEGATIVE); PHENCYCLIDINE URINE SCREEN NEGATIVE (NEGATIVE)
[2020-07-08] MEDS: DEXTROSE 50% WATER 50ML SYRINGE IV PRN (23:53)
[2020-07-09] VITALS (50 sets, daily range): BP systolic 107–166; BP diastolic 39–114
[2020-07-09] MEDS: SODIUM CHLORIDE 0.9% 1,000 ML IV SCH (05:27)
[2020-07-09 05:37] LABS: BASOPHILS % 0.2 % (0.0-2.0); EOSINOPHILS % 0.5 % (0.0-5.0); LYMPHOCYTES % 30.4 % (20.0-50.0); MEAN CORPUSCULAR HEMOGLOBIN 28.7 pg (28.0-32.0); MEAN CORPUSCULAR VOLUME 84.7 fL (81.0-99.0); MEAN PLATELET VOLUME 8.8 fl (7.4-10.4); MONOCYTES % 5.7 % (2.0-8.0); NEUTROPHILS % 63.2 % (40.0-76.0); PLATELET 81 x1000/uL (130-400); RED BLOOD CELL COUNT 2.21 mill/uL (4.2-5.4); RED CELL DISTRIBUTION WIDTH 15.6 % (11.6-14.6)
[2020-07-09 05:42] LABS: CHLORIDE 114 mEq/L (98-107)
[2020-07-09 05:46] LABS: HEMATOCRIT. 18.7 % (36.0-48.0); HEMOGLOBIN. 6.3 g/dL (12.0-16.0)
[2020-07-09 05:48] LABS: PHOSPHORUS 4.1 mg/dL (2.5-4.9)
[2020-07-09 05:51] LABS: CREATINE KINASE 96 IU/L (26-192)
[2020-07-09] MEDS: DEXTROSE 50% WATER 50ML SYRINGE IV PRN (06:06)
[2020-07-09] MEDS ORDERED: DEXT 5%/0.9% NACL 1,000 ML IV SCH (06:30)
[2020-07-09] MEDS ORDERED: HALOPERIDOL LACTATE 5MG/ML VIAL IM PRN (07:00)
[2020-07-09] MEDS ORDERED: POTASSIUM CHLORIDE INJ 40 MEQ in DEXT 5% WATER 500 ML IV ONE (07:00)
[2020-07-09] MEDS: AZTREONAM 1G in DEXTROSE 5% WATER 50ML IV SCH ×2 (08:07→20:10)
[2020-07-09] MEDS: PANTOPRAZOLE SODIUM 40 MG/VIAL IV SCH (09:37)
[2020-07-09] MEDS: DEXT 5%/0.45% NACL 1000ML 1,000 ML IV SCH (09:37)
[2020-07-09 09:48] LABS: BG BASE EXCESS 3.6 mmol/L (-2.0-2.0); BG CARBOXYHEMOGLOBIN 0.4 % (0.5-1.5); BG DEOXYHEMOGLOBIN 7.1 % (0.0-5.0); BG FRACTION INSPIRED OXYGEN 21; BG HCO3 ACT 28.1 mmol/L (22.0-26.0); BG METHEMOGLOBIN 0.4 % (0.0-1.5); BG OXYGEN SATURATION 92.8 % (92.0-98.5); BG OXYHEMOGLOBIN 92.1 % (94.0-97.0); BG PCO2 42.4 mmHg (35.0-45.0); BG PH 7.439 (7.350-7.450); BG PO2 67.8 mmHg (75.0-100.0); BG SAMPLE SITE RIGHT RADIAL; BG TOTAL HEMOGLOBIN 6.5 g/dL (12.0-18.0); BG VENT MODE ROOM AIR
[2020-07-09] MEDS ORDERED: DEXTROSE 50% WATER 50ML SYRINGE IV PRN (14:15)
[2020-07-09] MEDS: BLOOD SUGAR DIAGNOSTIC STRIP TEST SCH ×3 (15:11→20:10)
[2020-07-09] MEDS: INSULIN LISPRO 100 UNITS/ML SUBCUT SCH ×2 (16:30→20:10)
[2020-07-09] MEDS ORDERED: VANCOMYCIN 500 MG PREMIX 100 ML IV SCH (18:00)
[2020-07-09 19:47] LABS: HEMATOCRIT 23.1 % (36.0-48.0); HEMOGLOBIN 7.7 g/dL (12.0-16.0); MEAN CORPUSCULAR HEMOGLOBIN 28.9 pg (28.0-32.0); MEAN CORPUSCULAR VOLUME 86.6 fL (81.0-99.0); PLATELET 89 x1000/uL (130-400); RED BLOOD CELL COUNT 2.66 mill/uL (4.2-5.4); RED CELL DISTRIBUTION WIDTH 15.7 % (11.6-14.6)
[2020-07-09 21:35] LABS: T4 FREE 0.85 ng/dL (0.76-1.46)
[2020-07-10] VITALS (12 sets, daily range): BP systolic 110–168; BP diastolic 52–98
[2020-07-10] MEDS: DEXT 5%/0.45% NACL 1000ML 1,000 ML IV SCH (06:18)
[2020-07-10] MEDS: BLOOD SUGAR DIAGNOSTIC STRIP TEST SCH ×4 (06:31→20:30)
[2020-07-10] MEDS: INSULIN LISPRO 100 UNITS/ML SUBCUT SCH ×4 (08:00→20:32)
[2020-07-10] MEDS: AZTREONAM 1G in DEXTROSE 5% WATER 50ML IV SCH ×2 (08:37→20:31)
[2020-07-10] MEDS: PANTOPRAZOLE SODIUM 40 MG/VIAL IV SCH (08:37)
[2020-07-10] MEDS: LORAZEPAM 2MG/ML CPJ IV PRN ×2 (11:43→18:04)
[2020-07-10 15:35] LABS: BASOPHILS % 0.1 % (0.0-2.0); EOSINOPHILS % 0.6 % (0.0-5.0); HEMOGLOBIN. 7.4 g/dL (12.0-16.0); LYMPHOCYTES % 28.2 % (20.0-50.0); MEAN CORPUSCULAR HEMOGLOBIN 29.3 pg (28.0-32.0); MEAN CORPUSCULAR VOLUME 87.4 fL (81.0-99.0); MEAN PLATELET VOLUME 8.4 fl (7.4-10.4); MONOCYTES % 9.2 % (2.0-8.0); NEUTROPHILS % 61.9 % (40.0-76.0); PLATELET 90 x1000/uL (130-400); RED BLOOD CELL COUNT 2.52 mill/uL (4.2-5.4); RED CELL DISTRIBUTION WIDTH 15.7 % (11.6-14.6)
[2020-07-10 15:55] LABS: PHOSPHORUS 4.2 mg/dL (2.5-4.9)
[2020-07-10] MEDS ORDERED: VANCOMYCIN 1 G PREMIX 200 ML IV NR (17:00)
[2020-07-11] VITALS (13 sets, daily range): BP systolic 153–179; BP diastolic 61–84
[2020-07-11] MEDS: DEXT 5%/0.45% NACL 1000ML 1,000 ML IV SCH ×3 (01:32→22:08)
[2020-07-11] MEDS: LORAZEPAM 2MG/ML CPJ IV PRN ×3 (04:06→21:54)
[2020-07-11] MEDS: CLONIDINE 0.1MG TABLET PO PRN ×3 (06:04→21:55)
[2020-07-11 07:10] LABS: PHOSPHORUS 4.4 mg/dL (2.5-4.9)
[2020-07-11 07:49] LABS: BASOPHILS % 0.1 % (0.0-2.0); EOSINOPHILS % 1.1 % (0.0-5.0); HEMATOCRIT. 22.4 % (36.0-48.0); HEMOGLOBIN. 7.5 g/dL (12.0-16.0); LYMPHOCYTES % 27.3 % (20.0-50.0); MEAN CORPUSCULAR HEMOGLOBIN 29.3 pg (28.0-32.0); MEAN CORPUSCULAR VOLUME 87.5 fL (81.0-99.0); MEAN PLATELET VOLUME 8.3 fl (7.4-10.4); NEUTROPHILS % 62.5 % (40.0-76.0); PLATELET 100 x1000/uL (130-400); RED BLOOD CELL COUNT 2.55 mill/uL (4.2-5.4); RED CELL DISTRIBUTION WIDTH 15.8 % (11.6-14.6)
[2020-07-11] MEDS: BLOOD SUGAR DIAGNOSTIC STRIP TEST SCH ×4 (07:57→21:56)
[2020-07-11] MEDS: INSULIN LISPRO 100 UNITS/ML SUBCUT SCH ×4 (08:00→21:00)
[2020-07-11] MEDS: AZTREONAM 1G in DEXTROSE 5% WATER 50ML IV SCH ×2 (08:24→22:07)
[2020-07-11] MEDS: PANTOPRAZOLE SODIUM 40 MG/VIAL IV SCH (08:24)
[2020-07-11] MEDS ORDERED: POTASSIUM CHLORIDE INJ 40 MEQ in DEXT 5% WATER 250 ML IV NR (12:00)
[2020-07-11] MEDS: AZTREONAM 500MG in DEXTROSE 5% WATER 50ML IV SCH (21:00)
[2020-07-12] VITALS (11 sets, daily range): BP systolic 147–185; BP diastolic 58–75
[2020-07-12] MEDS: DEXT 5%/0.45% NACL 1000ML 1,000 ML IV SCH ×3 (03:53→20:27)
[2020-07-12] MEDS: CLONIDINE 0.1MG TABLET PO PRN ×3 (06:26→20:27)
[2020-07-12] MEDS: HYDRALAZINE 20MG/ML VIAL IV PRN (07:27)
[2020-07-12] MEDS: HYDROCODONE/ACETAMINOPHEN 5/325MG TABLET PO PRN ×2 (07:29→18:20)
[2020-07-12] MEDS: BLOOD SUGAR DIAGNOSTIC STRIP TEST SCH ×4 (07:30→20:28)
[2020-07-12] MEDS: INSULIN LISPRO 100 UNITS/ML SUBCUT SCH ×4 (08:00→20:28)
[2020-07-12] MEDS: AZTREONAM 500MG in DEXTROSE 5% WATER 50ML IV SCH ×2 (09:20→20:27)
[2020-07-12] MEDS: PANTOPRAZOLE SODIUM 40 MG/VIAL IV SCH (09:20)
[2020-07-12 09:37] LABS: BASOPHILS % 0.4 % (0.0-2.0); EOSINOPHILS % 3.4 % (0.0-5.0); HEMATOCRIT. 22.8 % (36.0-48.0); HEMOGLOBIN. 7.5 g/dL (12.0-16.0); LYMPHOCYTES % 34.6 % (20.0-50.0); MEAN CORPUSCULAR HEMOGLOBIN 28.9 pg (28.0-32.0); MEAN CORPUSCULAR VOLUME 88.2 fL (81.0-99.0); MONOCYTES % 9.3 % (2.0-8.0); NEUTROPHILS % 52.3 % (40.0-76.0); PLATELET 115 x1000/uL (130-400); RED BLOOD CELL COUNT 2.58 mill/uL (4.2-5.4); RED CELL DISTRIBUTION WIDTH 15.7 % (11.6-14.6)
[2020-07-13] VITALS (9 sets, daily range): BP systolic 130–187; BP diastolic 43–82
[2020-07-13] MEDS: HYDROCODONE/ACETAMINOPHEN 5/325MG TABLET PO PRN (00:24)
[2020-07-13] MEDS: HYDRALAZINE 20MG/ML VIAL IV PRN ×2 (01:21→17:57)
[2020-07-13] MEDS: DEXT 5%/0.45% NACL 1000ML 1,000 ML IV SCH ×3 (05:11→21:04)
[2020-07-13 05:37] LABS: PHOSPHORUS 4.2 mg/dL (2.5-4.9)
[2020-07-13 05:51] LABS: BASOPHILS % 0.2 % (0.0-2.0); EOSINOPHILS % 3.6 % (0.0-5.0); HEMATOCRIT. 22.6 % (36.0-48.0); HEMOGLOBIN. 7.6 g/dL (12.0-16.0); LYMPHOCYTES % 27.4 % (20.0-50.0); MEAN CORPUSCULAR HEMOGLOBIN 29.4 pg (28.0-32.0); MEAN CORPUSCULAR VOLUME 87.9 fL (81.0-99.0); MEAN PLATELET VOLUME 8.4 fl (7.4-10.4); MONOCYTES % 9.4 % (2.0-8.0); NEUTROPHILS % 59.4 % (40.0-76.0); PLATELET 133 x1000/uL (130-400); RED BLOOD CELL COUNT 2.57 mill/uL (4.2-5.4); RED CELL DISTRIBUTION WIDTH 15.5 % (11.6-14.6)
[2020-07-13] MEDS: CLONIDINE 0.1MG TABLET PO PRN (06:24)
[2020-07-13] MEDS: INSULIN LISPRO 100 UNITS/ML SUBCUT SCH ×4 (08:00→21:03)
[2020-07-13] MEDS: BLOOD SUGAR DIAGNOSTIC STRIP TEST SCH ×4 (08:05→20:19)
[2020-07-13] MEDS: PANTOPRAZOLE SODIUM 40 MG/VIAL IV SCH (09:24)
[2020-07-13] MEDS: AZTREONAM 500MG in DEXTROSE 5% WATER 50ML IV SCH ×2 (09:25→21:03)
[2020-07-13] MEDS ORDERED: NIFEDIPINE XL 30MG TAB PO SCH (11:30)
[2020-07-13] MEDS: HALOPERIDOL 2MG TABLET PO SCH ×2 (12:25→21:02)
[2020-07-13] MEDS: GABAPENTIN 100MG CAPSULE PO SCH ×2 (14:13→21:03)
[2020-07-13] MEDS ORDERED: TOPIRAMATE 25MG TABLET PO SCH (21:00)
[2020-07-13] MEDS: NIFEDIPINE XL 30MG TAB PO SCH (21:02)
[2020-07-14] VITALS: BP 150/73
[2020-07-14 04:00] VITALS: BP 127/48
[2020-07-14] MEDS: GABAPENTIN 100MG CAPSULE PO SCH ×2 (05:17→16:21)
[2020-07-14] MEDS: HYDROCODONE/ACETAMINOPHEN 5/325MG TABLET PO PRN (05:20)
[2020-07-14] MEDS: INSULIN LISPRO 100 UNITS/ML SUBCUT SCH ×3 (07:38→18:00)
[2020-07-14] MEDS: BLOOD SUGAR DIAGNOSTIC STRIP TEST SCH ×3 (07:38→18:24)
[2020-07-14 07:55] LABS: BASOPHILS % 0.6 % (0.0-2.0); EOSINOPHILS % 2.8 % (0.0-5.0); HEMATOCRIT. 23.4 % (36.0-48.0); HEMOGLOBIN. 7.7 g/dL (12.0-16.0); LYMPHOCYTES % 26.5 % (20.0-50.0); MEAN CORPUSCULAR HEMOGLOBIN 28.8 pg (28.0-32.0); MEAN CORPUSCULAR VOLUME 87.3 fL (81.0-99.0); MEAN PLATELET VOLUME 8.1 fl (7.4-10.4); MONOCYTES % 8.3 % (2.0-8.0); NEUTROPHILS % 61.8 % (40.0-76.0); PLATELET 166 x1000/uL (130-400); RED BLOOD CELL COUNT 2.68 mill/uL (4.2-5.4); RED CELL DISTRIBUTION WIDTH 15.5 % (11.6-14.6)
[2020-07-14 08:00] VITALS: BP 146/66
[2020-07-14] MEDS: HALOPERIDOL 2MG TABLET PO SCH (08:03)
[2020-07-14] MEDS: NIFEDIPINE XL 30MG TAB PO SCH (08:04)
[2020-07-14] MEDS: DEXT 5%/0.45% NACL 1000ML 1,000 ML IV SCH (08:05)
[2020-07-14] MEDS: PANTOPRAZOLE SODIUM 40 MG/VIAL IV SCH (08:05)
[2020-07-14 08:21] LABS: PHOSPHORUS 3.2 mg/dL (2.5-4.9)
[2020-07-14] MEDS: LORAZEPAM 2MG/ML CPJ IV PRN (10:38)
[2020-07-14 12:00] VITALS: BP 149/62
[2020-07-14 16:00] VITALS: BP 107/41
[2020-07-14] MEDS ORDERED: NIFE-32 MT (16:13)
[2020-07-14 17:48] VITALS: BP 126/62
== END 2020-07-14 19:43 | DRG 52 ==
LOC: ER 19:53 → MICUSO 07-08 00:40 → ENRESERV 07-08 03:09 → 5EST 07-09 21:00
PROVIDERS: ADMIT Internal Medicine; ATTEND Internal Medicine
PROC: 02H633Z Insertion of Infusion Device into Right Atrium, Percutaneous Approach (ICD-10-PCS; principal; 2020-07-08)
PROC: 30233N1 Transfusion of Nonautologous Red Blood Cells into Peripheral Vein, Percutaneous Approach (ICD-10-PCS; 2020-07-08)
PROC: 5A1D70Z Performance of Urinary Filtration, Intermittent, Less than 6 Hours Per Day (ICD-10-PCS; 2020-07-08)
PROC: 5A1D70Z Performance of Urinary Filtration, Intermittent, Less than 6 Hours Per Day (ICD-10-PCS; 2020-07-09)
DX: G92 Toxic encephalopathy (principal); J18.9 Pneumonia, unspecified organism; N17.9 Acute kidney failure, unspecified; N18.4 Chronic kidney disease, stage 4 (severe); R04.0 Epistaxis; R57.8 Other shock; S01.81XA Laceration without foreign body of other part of head, initial encounter; B19.20 Unspecified viral hepatitis C without hepatic coma; D64.9 Anemia, unspecified; D69.6 Thrombocytopenia, unspecified; I12.9 Hypertensive chronic kidney disease with stage 1 through stage 4 chronic kidney disease, or unspecified chronic kidney disease; E11.22 Type 2 diabetes mellitus with diabetic chronic kidney disease; E11.649 Type 2 diabetes mellitus with hypoglycemia without coma; E43 Unspecified severe protein-calorie malnutrition; E78.5 Hyperlipidemia, unspecified; E87.0 Hyperosmolality and hypernatremia; E87.2 Acidosis; E87.5 Hyperkalemia; J96.01 Acute respiratory failure with hypoxia; Z20.822 Contact with and (suspected) exposure to COVID-19; R74.01 Elevation of levels of liver transaminase levels; X58.XXXA Exposure to other specified factors, initial encounter; Z72.0 Tobacco use; Z82.49 Family history of ischemic heart disease and other diseases of the circulatory system; Z83.3 Family history of diabetes mellitus; Z88.5 Allergy status to narcotic agent; Z88.0 Allergy status to penicillin; Z88.8 Allergy status to other drugs, medicaments and biological substances; Z79.899 Other long term (current) drug therapy; Z68.28 Body mass index [BMI] 28.0-28.9, adult; Y93.89 Activity, other specified; Y92.89 Other specified places as the place of occurrence of the external cause; Y99.8 Other external cause status; M47.12 Other spondylosis with myelopathy, cervical region; D72.829 Elevated white blood cell count, unspecified
CPT/HCPCS: 36415; 36556; 36600; 70551; 71045; 76770; 76937; 80048; 80053; 80061; 80076; 80202; 80305; 81003; 82140; 82375; 82550; 82607; 82746; 82805; 82962; 83010; 83036; 83540; 83550; 83605; 83615; 83735; 83880; 84100; 84145; 84439; 84443; 84481; 84484; 85025; 85027; 85044; 86850; 86900; 86920; 92610; 93005; 93970; 97116; 97162; 97166; 97530; 99291; A6261; C1752; C9113; J0360; J0456; J0610; J1630; J1644; J1815; J2060; J3370; J3480; J3490; J7030; J7040; J7042; J7060; J7070; P9016; P9021; U0003; A4315

== ENCOUNTER 2020-10-24 13:09 | Inpatient (IN) | payer MEDICAID, OTHER ==
[~2020-10-24] VITALS: Ht 165.1 cm; Wt 72.6 kg
[~2020-10-24 13:09] MED LIST changes: -AMLO10TA80 PO; -ASPI-1497 MT; +BENZ2TAB7 PO; -CARI350T27 MT; -GABA-529 PO; -HALO2TAB MT; -HYDR-4001 MT; -HYDR-4135 PO; -METH-774 PO; -NICO-681 TD; +NIFE-32 MT; -OMEP20TA2 MT; -QUET25TA PO; +TOPA25 PO; -TOPI200T15 MT; -TRAM50TA3 MT
[2020-10-24 14:07] LABS: BASOPHILS % 0.8 % (0.0-2.0); CHLORIDE 114 mEq/L (98-107); EOSINOPHILS % 1.8 % (0.0-5.0); HEMATOCRIT. 21.8 % (36.0-48.0); HEMOGLOBIN. 7.5 g/dL (12.0-16.0); LYMPHOCYTES % 29.1 % (20.0-50.0); MEAN CORPUSCULAR HEMOGLOBIN 29.6 pg (28.0-32.0); MEAN CORPUSCULAR VOLUME 86.6 fL (81.0-99.0); MONOCYTES % 5.5 % (2.0-8.0); NEUTROPHILS % 62.8 % (40.0-76.0); PLATELET 163 x1000/uL (130-400); RED BLOOD CELL COUNT 2.52 mill/uL (4.2-5.4); RED CELL DISTRIBUTION WIDTH 15.6 % (11.6-14.6)
[2020-10-24] MEDS ORDERED: ASPIRIN 325MG EC TABLET PO SCH (15:15)
[2020-10-24] MEDS ORDERED: FUROSEMIDE 100MG/10ML VIAL IVP SCH (15:15)
[2020-10-24] MEDS ORDERED: AMLODIPINE 10MG TABLET PO NR (18:00)
[2020-10-24] MEDS ORDERED: CLONIDINE 0.2MG TABLET PO ONE (18:00)
[2020-10-24] MEDS ORDERED: ACETAMINOPHEN 325MG TABLET PO PRN (20:00)
[2020-10-24] MEDS ORDERED: MORPHINE SULFATE 2 MG/ML CPJ (NOT FOR IM USE) IV PRN (20:00)
[2020-10-24] MEDS ORDERED: IPRATROPIUM/ALBUTEROL 0.5-3(2.5)MG/3ML NEB HHN PRN (20:00)
[2020-10-24] MEDS ORDERED: DOCUSATE SODIUM 100MG CAPSULE PO PRN (20:00)
[2020-10-24] MEDS ORDERED: HYDROCODONE/ACETAMINOPHEN 5/325MG TABLET PO PRN (20:00)
[2020-10-24] MEDS ORDERED: CLONIDINE 0.1MG TABLET PO PRN (20:00)
[2020-10-24] MEDS ORDERED: HYDRALAZINE 20MG/ML VIAL IV PRN (20:00)
[2020-10-24] MEDS ORDERED: ONDANSETRON HCL 4MG/2ML INJ IV PRN (20:00)
[2020-10-24] MEDS ORDERED: LORAZEPAM 2MG/ML CPJ IV PRN (20:00)
[2020-10-24] MEDS ORDERED: GUAIFENESIN 200MG/10ML SUGAR FREE UDC PO PRN (20:00)
[2020-10-24] MEDS ORDERED: MAGNESIUM/ALUMINUM HYDROXIDE/SIMETHICONE 30ML UDC PO PRN (20:00)
[2020-10-24] MEDS ORDERED: DIPHENHYDRAMINE 50MG/ML VIAL IV PRN (20:00)
[2020-10-24 22:15] VITALS: BP 165/62
[2020-10-24 22:35] VITALS: BP 165/65
[2020-10-25] VITALS (7 sets, daily range): BP systolic 130–171; BP diastolic 54–66
[2020-10-25 01:00] LABS: CREATINE KINASE MB FRACTION 1.8 ng/mL (0.5-3.6)
[2020-10-25] MEDS: SODIUM CHLORIDE 0.9% INJ 3ML FLUSH IVF SCH ×3 (06:00→21:30)
[2020-10-25] MEDS ORDERED: MEDICATION NOT ON FORMULARY EA (Paroxetine Hcl 1 TAB) MT SCH (09:00)
[2020-10-25] MEDS: NIFEDIPINE XL 60MG TAB PO SCH (09:36)
[2020-10-25] MEDS: TOPIRAMATE 25MG TABLET PO SCH ×2 (09:36→21:29)
[2020-10-25] MEDS: BENZTROPINE MESYLATE 2MG TABLET PO SCH ×2 (09:40→18:05)
[2020-10-25] MEDS: PAROXETINE HCL 10MG TABLET PO SCH (09:40)
[2020-10-25] MEDS ORDERED: GABA-532 MT (11:18)
[2020-10-25] MEDS: GABAPENTIN 300MG CAPSULE PO SCH ×2 (13:08→21:33)
[2020-10-25 17:08] LABS: BASOPHILS % 0.9 % (0.0-2.0); EOSINOPHILS % 2.1 % (0.0-5.0); HEMATOCRIT. 22.3 % (36.0-48.0); HEMOGLOBIN. 7.8 g/dL (12.0-16.0); LYMPHOCYTES % 36.4 % (20.0-50.0); MEAN CORPUSCULAR HEMOGLOBIN 29.8 pg (28.0-32.0); MEAN CORPUSCULAR VOLUME 85.3 fL (81.0-99.0); MEAN PLATELET VOLUME 7.8 fl (7.4-10.4); MONOCYTES % 5.3 % (2.0-8.0); NEUTROPHILS % 55.3 % (40.0-76.0); PLATELET 169 x1000/uL (130-400); RED BLOOD CELL COUNT 2.62 mill/uL (4.2-5.4); RED CELL DISTRIBUTION WIDTH 15.2 % (11.6-14.6)
[2020-10-25 17:14] LABS: CHLORIDE 112 mEq/L (98-107)
[2020-10-25 17:22] LABS: CREATINE KINASE 51 IU/L (26-192)
[2020-10-25 17:25] LABS: CREATINE KINASE MB FRACTION < 1.0 ng/mL (0.5-3.6)
[2020-10-25 18:53] LABS: BG BASE EXCESS -5.3 mmol/L (-2.0-2.0); BG DEOXYHEMOGLOBIN 2.5 % (0.0-5.0); BG FRACTION INSPIRED OXYGEN 21; BG HCO3 ACT 19.6 mmol/L (22.0-26.0); BG METHEMOGLOBIN 0.1 % (0.0-1.5); BG OXYGEN SATURATION 97.5 % (92.0-98.5); BG OXYHEMOGLOBIN 96.4 % (94.0-97.0); BG PCO2 35.1 mmHg (35.0-45.0); BG PH 7.364 (7.350-7.450); BG PO2 92.4 mmHg (75.0-100.0); BG SAMPLE SITE RIGHT RADIAL; BG TOTAL HEMOGLOBIN 7.6 g/dL (12.0-18.0); BG VENT MODE ROOM AIR
[2020-10-25] MEDS ORDERED: EPOETIN ALFA-EPBX 10,000 UNIT/ML VIAL SUBCUT NR (21:00)
[2020-10-26] VITALS: BP 125/48
[2020-10-26 04:00] VITALS: BP 106/44
[2020-10-26] MEDS: SODIUM CHLORIDE 0.9% INJ 3ML FLUSH IVF SCH ×2 (06:03→21:09)
[2020-10-26] MEDS: GABAPENTIN 300MG CAPSULE PO SCH ×3 (06:03→21:09)
[2020-10-26 07:02] LABS: BASOPHILS % 0.8 % (0.0-2.0); EOSINOPHILS % 2.9 % (0.0-5.0); HEMATOCRIT. 21.9 % (36.0-48.0); HEMOGLOBIN. 7.5 g/dL (12.0-16.0); LYMPHOCYTES % 37.2 % (20.0-50.0); MEAN CORPUSCULAR HEMOGLOBIN 29.5 pg (28.0-32.0); MEAN CORPUSCULAR VOLUME 86.1 fL (81.0-99.0); MEAN PLATELET VOLUME 7.7 fl (7.4-10.4); MONOCYTES % 6.4 % (2.0-8.0); NEUTROPHILS % 52.7 % (40.0-76.0); PLATELET 165 x1000/uL (130-400); RED BLOOD CELL COUNT 2.54 mill/uL (4.2-5.4); RED CELL DISTRIBUTION WIDTH 15.3 % (11.6-14.6)
[2020-10-26 07:15] LABS: PHOSPHORUS 4.1 mg/dL (2.5-4.9)
[2020-10-26 08:20] VITALS: BP 107/65
[2020-10-26] MEDS: NIFEDIPINE XL 60MG TAB PO SCH (08:21)
[2020-10-26] MEDS: BENZTROPINE MESYLATE 2MG TABLET PO SCH ×2 (08:33→18:31)
[2020-10-26] MEDS: PAROXETINE HCL 10MG TABLET PO SCH (08:33)
[2020-10-26] MEDS: TOPIRAMATE 25MG TABLET PO SCH ×2 (08:33→21:09)
[2020-10-26] MEDS: CITRIC ACID/SODIUM CITRATE SOLN 15ML UDC PO SCH ×2 (10:18→18:31)
[2020-10-26 12:00] VITALS: BP 145/60
[2020-10-26] MEDS ORDERED: MAGNESIUM 2 G PREMIX 50 ML IV SCH (12:00)
[2020-10-26 16:00] VITALS: BP 143/51
[2020-10-26 20:00] VITALS: BP 155/70
[2020-10-27] VITALS: BP 149/53
[2020-10-27 04:00] VITALS: BP 131/70
[2020-10-27] MEDS: SODIUM CHLORIDE 0.9% INJ 3ML FLUSH IVF SCH (05:12)
[2020-10-27] MEDS: GABAPENTIN 300MG CAPSULE PO SCH (05:12)
[2020-10-27 06:38] LABS: PHOSPHORUS 4.2 mg/dL (2.5-4.9)
[2020-10-27 06:56] LABS: BASOPHILS % 1.4 % (0.0-2.0); HEMATOCRIT. 26.1 % (36.0-48.0); HEMOGLOBIN. 8.8 g/dL (12.0-16.0); LYMPHOCYTES % 47.5 % (20.0-50.0); MEAN CORPUSCULAR VOLUME 85.6 fL (81.0-99.0); MEAN PLATELET VOLUME 7.9 fl (7.4-10.4); MONOCYTES % 4.6 % (2.0-8.0); NEUTROPHILS % 44.5 % (40.0-76.0); PLATELET 204 x1000/uL (130-400); RED BLOOD CELL COUNT 3.05 mill/uL (4.2-5.4); RED CELL DISTRIBUTION WIDTH 15.5 % (11.6-14.6)
[2020-10-27 08:00] VITALS: BP 154/77
[2020-10-27] MEDS: CITRIC ACID/SODIUM CITRATE SOLN 15ML UDC PO SCH (08:51)
[2020-10-27] MEDS: PAROXETINE HCL 10MG TABLET PO SCH (08:51)
[2020-10-27] MEDS: TOPIRAMATE 25MG TABLET PO SCH (08:52)
[2020-10-27] MEDS: BENZTROPINE MESYLATE 2MG TABLET PO SCH (08:53)
[2020-10-27] MEDS: NIFEDIPINE XL 60MG TAB PO SCH (08:53)
[2020-10-27 10:26] VITALS: BP 154/77
[2020-10-27 11:28] VITALS: BP 149/59
== END 2020-10-27 13:15 | disposition home or self-care (01) | DRG 194 ==
LOC: ER 13:09 → 5WST 16:50 → ENRESERV 19:58 → 5WST 22:17
PROVIDERS: ADMIT Internal Medicine; ATTEND Internal Medicine
DX: I13.0 Hypertensive heart and chronic kidney disease with heart failure and stage 1 through stage 4 chronic kidney disease, or unspecified chronic kidney disease (principal); J96.90 Respiratory failure, unspecified, unspecified whether with hypoxia or hypercapnia; E44.0 Moderate protein-calorie malnutrition; E87.2 Acidosis; N17.9 Acute kidney failure, unspecified; N18.4 Chronic kidney disease, stage 4 (severe); I50.33 Acute on chronic diastolic (congestive) heart failure; E11.22 Type 2 diabetes mellitus with diabetic chronic kidney disease; B19.20 Unspecified viral hepatitis C without hepatic coma; D64.9 Anemia, unspecified; E78.5 Hyperlipidemia, unspecified; E87.8 Other disorders of electrolyte and fluid balance, not elsewhere classified; I16.0 Hypertensive urgency; F20.9 Schizophrenia, unspecified; G40.909 Epilepsy, unspecified, not intractable, without status epilepticus; Z82.49 Family history of ischemic heart disease and other diseases of the circulatory system; Z83.3 Family history of diabetes mellitus; Z88.5 Allergy status to narcotic agent; Z88.0 Allergy status to penicillin; Z88.8 Allergy status to other drugs, medicaments and biological substances; Z79.899 Other long term (current) drug therapy; Z68.26 Body mass index [BMI] 26.0-26.9, adult
CPT/HCPCS: 36415; 36600; 71045; 76770; 80048; 80053; 82375; 82550; 82553; 82805; 83735; 83880; 84100; 84443; 84484; 85025; 93005; 93306; 93970; 99291; J0360; J0885; J1940; J3475; J7040

== ENCOUNTER 2021-08-07 19:02 | Emergency (ER) | payer MEDICAID, OTHER ==
[~2021-08-07] VITALS: Ht 157.5 cm; Wt 62.0 kg
[~2021-08-07 19:02] MED LIST changes: +GABA-532 MT
[2021-08-07 19:04] VITALS: BP 140/85
[2021-08-07] MEDS ORDERED: IBUPROFEN 600MG TABLET PO STA (19:34)
[2021-08-07] MEDS ORDERED: ACETAMINOPHEN 325MG TABLET PO STA (19:34)
== END 2021-08-07 20:45 | disposition left against medical advice (07) ==
LOC: ER 19:02
DX: M25.561 Pain in right knee (principal); E11.22 Type 2 diabetes mellitus with diabetic chronic kidney disease; I12.0 Hypertensive chronic kidney disease with stage 5 chronic kidney disease or end stage renal disease; N18.6 End stage renal disease; Z99.2 Dependence on renal dialysis; Z88.5 Allergy status to narcotic agent; Z88.0 Allergy status to penicillin; W01.0XXA Fall on same level from slipping, tripping and stumbling without subsequent striking against object, initial encounter; Y92.018 Other place in single-family (private) house as the place of occurrence of the external cause
CPT/HCPCS: 73562; 73590; 99284

== ENCOUNTER → 2022-12-26 | Day surgery (SDC) | payer MEDICARE, MEDICAID ==
[~2022-12-26] VITALS: Ht 163.8 cm; Wt 83.9 kg
[~2022-12-26] MED LIST changes: +ACET-2708 PO; +AMLO5TAB88 PO; +BACITRACIN 15GM TUBE TOP ONE; -BENZ2TAB7 PO; +BUME2TAB7 PO; +BUPIVACAINE HCL/PF 0.5% (5MG/ML) 10ML ONE; +CLINDAMYCIN 600MG PREMIX 50 ML IV SCH; +DIPH50CA41 PO; -FAMO20TA8 PO; +FENTANYL CITRATE/PF 50MCG/ML 2ML VIAL ONE; +FERR325T6 PO; -GABA-532 MT; +GABA-532 PO; +GLYCOPYRROLATE 0.2 MG/ML 2ML VIAL ONE; +HEPARIN 100 UNITS/1 ML VIAL ONE; +HEPARIN SODIUM 1,000 UNIT/1ML VIAL IV NR; +HEPARIN SODIUM 1,000 UNIT/1ML VIAL IV ONE; +HYDR-4001 PO; +HYDR-4134 PO; +LACT10SO3 PO; +LIDOCAINE HCL 1% 20ML VIAL (Pyxis) INJ ONE; +LORA-250 PO; -NIFE-32 MT; +OMEP20CA14 PO; +PARO-41 PO; -PARO30TA62 MT; +PHENYLEPHRINE HCL 10 MG/ML 1ML (IV VIAL) IV ONE; +POLYMYXIN B SULFATE 500000 UNITS/VIAL ONE; +PROPOFOL 200MG/20ML VIAL IV ONE; +RISP0.5T65 PO; +SEVE800T8 PO; +SODIUM CHLORIDE 0.9% 500 ML IV ONE; +THROMBIN (BOVINE) 5000 UNITS/VIAL TOP ONE; -TOPA25 PO; +TOPI50CA5 PO
[2022-12-26 06:40] LABS: BASOPHILS % 0.5 % (0.0-2.0); HEMATOCRIT. 40.8 % (36.0-48.0); HEMOGLOBIN. 13.5 g/dL (12.0-16.0); LYMPHOCYTES % 45.7 % (20.0-50.0); MEAN CORPUSCULAR HEMOGLOBIN 31.4 pg (28.0-32.0); MEAN CORPUSCULAR HGB CONC 33.1 g/dL (31.0-37.0); MEAN CORPUSCULAR VOLUME 94.7 fL (81.0-99.0); MEAN PLATELET VOLUME 8.4 fl (7.4-10.4); MONOCYTES % 8.5 % (2.0-8.0); NEUTROPHILS % 40.3 % (40.0-76.0); PLATELET 117 x1000/uL (130-400); RED BLOOD CELL COUNT 4.31 mill/uL (4.2-5.4); WHITE BLOOD COUNT 3.9 x1000/uL (4.5-11.0)
[2022-12-26 06:49] LABS: PARTIAL THROMBOPLASTIN TIME 28.4 sec (23.4-31.0)
[2022-12-26 06:50] LABS: POTASSIUM 4.5 mEq/L (3.5-5.1)
[2022-12-26 06:52] LABS: CALCIUM 9.2 mg/dL (8.5-10.1)
[2022-12-26 06:58] LABS: CREATININE 5.1 mg/dL (0.6-1.3)
== END | disposition home or self-care (01) ==
LOC: OR 05:36
PROVIDERS: ATTEND Surgery Vascular Surgery
DX: I12.0 Hypertensive chronic kidney disease with stage 5 chronic kidney disease or end stage renal disease (principal); N18.6 End stage renal disease; E11.22 Type 2 diabetes mellitus with diabetic chronic kidney disease; K21.9 Gastro-esophageal reflux disease without esophagitis; Z79.84 Long term (current) use of oral hypoglycemic drugs; Z79.899 Other long term (current) drug therapy; Z98.890 Other specified postprocedural states; Z99.2 Dependence on renal dialysis; Z82.49 Family history of ischemic heart disease and other diseases of the circulatory system; Z88.0 Allergy status to penicillin; Z88.5 Allergy status to narcotic agent; Z88.8 Allergy status to other drugs, medicaments and biological substances
CPT/HCPCS: 80048; 85025; 85610; 85730; 36415; 93005; 36821; J3010; J3490 ×6; J1642; J1644; J2370; J2704; Z7610 ×22; J7030

== ENCOUNTER → 2023-03-13 | Day surgery (SDC) | payer MEDICARE, MEDICAID ==
[~2023-03-13] VITALS: Ht 163.8 cm; Wt 83.9 kg
[~2023-03-13] MED LIST changes: +ALBUTEROL 6.7GM HFA INHALER ONE; +BACITRACIN 14GM TUBE TOP ONE; -BACITRACIN 15GM TUBE TOP ONE; +DEXAMETHASONE 4MG/ML 1ML VIAL ONE; -GLYCOPYRROLATE 0.2 MG/ML 2ML VIAL ONE; -HEPARIN 100 UNITS/1 ML VIAL ONE; +HYDROMORPHONE HCL/PF 2MG/ML CPJ IV PRN; +LABETALOL 5MG/ML SYR 20 MG/4 ML SYRINGE IV PRN; +LIDOCAINE HCL 1% 10 MG/ML 10ML VIAL ONE; -LIDOCAINE HCL 1% 20ML VIAL (Pyxis) INJ ONE; +MEPERIDINE HCL/PF 25MG/ML CPJ IV PRN; +MIDAZOLAM HCL 2 MG/2 ML VIAL ONE; +ONDANSETRON HCL 4MG/2ML INJ IV PRN; +ONDANSETRON HCL 4MG/2ML INJ ONE; -PHENYLEPHRINE HCL 10 MG/ML 1ML (IV VIAL) IV ONE; +ROPIVACAINE HCL 1% 20 ML VIAL EPI ONE
[2023-03-13 07:09] LABS: BASOPHILS % 0.8 % (0.0-2.0); EOSINOPHILS % 2.7 % (0.0-5.0); HEMATOCRIT. 27.4 % (36.0-48.0); HEMOGLOBIN. 9.2 g/dL (12.0-16.0); LYMPHOCYTES % 39.8 % (20.0-50.0); MEAN CORPUSCULAR HEMOGLOBIN 32.2 pg (28.0-32.0); MEAN CORPUSCULAR HGB CONC 33.7 g/dL (31.0-37.0); MEAN CORPUSCULAR VOLUME 95.4 fL (81.0-99.0); MEAN PLATELET VOLUME 7.9 fl (7.4-10.4); MONOCYTES % 11.8 % (2.0-8.0); NEUTROPHILS % 44.9 % (40.0-76.0); PLATELET 184 x1000/uL (130-400); RED BLOOD CELL COUNT 2.87 mill/uL (4.2-5.4); RED CELL DISTRIBUTION WIDTH 17.9 % (11.6-14.6); WHITE BLOOD COUNT 4.5 x1000/uL (4.5-11.0)
[2023-03-13 07:13] LABS: PARTIAL THROMBOPLASTIN TIME 24.8 sec (23.4-31.0); PROTHROMBIN TIME 11.2 sec (9.6-11.0)
[2023-03-13 07:42] LABS: CALCIUM 9.3 mg/dL (8.7-10.4); CREATININE 3.6 mg/dL (0.6-1.0); POTASSIUM 4.2 mEq/L (3.5-5.1)
== END | disposition home or self-care (01) ==
LOC: OR 05:17
PROVIDERS: ATTEND Surgery Vascular Surgery
DX: I12.0 Hypertensive chronic kidney disease with stage 5 chronic kidney disease or end stage renal disease (principal); N18.6 End stage renal disease; E11.22 Type 2 diabetes mellitus with diabetic chronic kidney disease; K21.9 Gastro-esophageal reflux disease without esophagitis; Z87.891 Personal history of nicotine dependence; Z79.899 Other long term (current) drug therapy; Z98.890 Other specified postprocedural states; Z82.49 Family history of ischemic heart disease and other diseases of the circulatory system; Z88.0 Allergy status to penicillin; Z88.5 Allergy status to narcotic agent; Z88.8 Allergy status to other drugs, medicaments and biological substances
CPT/HCPCS: 80048; 82962; 85025; 85610; 85730; 36415; 93005; 36821; J3010; J3490 ×5; J1100; J1644; J2250; J2405; J2704; J2795; Z7610 ×25; A4217; J7040

== ENCOUNTER → 2023-06-05 | Day surgery (SDC) | payer MEDICARE, MEDICAID ==
[~2023-06-05] VITALS: Ht 163.8 cm; Wt 92.0 kg
[~2023-06-05] MED LIST changes: +ALBUMIN HUMAN 12.5G/250ML (5%) IV ONE; +ALBUMIN HUMAN 12.5GM/50ML (25%) IV ONE; -ALBUTEROL 6.7GM HFA INHALER ONE; +CLINDAMYCIN 600MG PREMIX 50 ML IV ONE; -CLINDAMYCIN 600MG PREMIX 50 ML IV SCH; +DEXTROSE 50% WATER 50ML SYRINGE IV PRN; +EPHEDRINE SULFATE 50MG/ML VIAL ONE; +ETOMIDATE 2MG/ML 10ML VIAL IV ONE; +HEPARIN 1000 UNITS/ML 10ML ONE; -HEPARIN SODIUM 1,000 UNIT/1ML VIAL IV NR; -LABETALOL 5MG/ML SYR 20 MG/4 ML SYRINGE IV PRN; +PROTAMINE SULFATE 10MG/ML VIAL 5ML IV ONE; -ROPIVACAINE HCL 1% 20 ML VIAL EPI ONE
[2023-06-05 10:55] LABS: BASOPHILS % 0.8 % (0.0-2.0); EOSINOPHILS % 1.5 % (0.0-5.0); HEMOGLOBIN. 13.6 g/dL (12.0-16.0); LYMPHOCYTES % 34.3 % (20.0-50.0); MEAN CORPUSCULAR HEMOGLOBIN 32.6 pg (28.0-32.0); MEAN CORPUSCULAR HGB CONC 33.2 g/dL (31.0-37.0); MEAN CORPUSCULAR VOLUME 98.2 fL (81.0-99.0); MEAN PLATELET VOLUME 9.2 fl (7.4-10.4); MONOCYTES % 8.5 % (2.0-8.0); NEUTROPHILS % 54.9 % (40.0-76.0); PLATELET 113 x1000/uL (130-400); RED BLOOD CELL COUNT 4.18 mill/uL (4.2-5.4); RED CELL DISTRIBUTION WIDTH 15.7 % (11.6-14.6); WHITE BLOOD COUNT 4.5 x1000/uL (4.5-11.0)
[2023-06-05 11:08] LABS: PARTIAL THROMBOPLASTIN TIME 28.8 sec (23.4-31.0)
[2023-06-05 11:12] LABS: POTASSIUM 4.4 mEq/L (3.5-5.1)
[2023-06-05 11:16] LABS: CREATININE 5.6 mg/dL (0.6-1.0)
[2023-06-05] MEDS: DEXTROSE/DEXTRIN/MALTOSE 31GM TUBE (24GM/SERVING) PO ONE (11:40)
[2023-06-05] MEDS: DEXTROSE 50% WATER 50ML SYRINGE IV NR (16:38)
[2023-06-05 17:28] VITALS: BP 117/52; PULSE 73; RESP 19
[2023-06-05] MEDS: FENTANYL CITRATE/PF 50MCG/ML 2ML VIAL IV PRN (17:28)
== END | disposition home or self-care (01) ==
LOC: OR 10:03
PROVIDERS: ATTEND Surgery Vascular Surgery
DX: I12.0 Hypertensive chronic kidney disease with stage 5 chronic kidney disease or end stage renal disease (principal); N18.6 End stage renal disease; E11.22 Type 2 diabetes mellitus with diabetic chronic kidney disease; K21.9 Gastro-esophageal reflux disease without esophagitis; E66.9 Obesity, unspecified; Z79.899 Other long term (current) drug therapy; Z98.890 Other specified postprocedural states; Z88.0 Allergy status to penicillin; Z88.5 Allergy status to narcotic agent; Z88.8 Allergy status to other drugs, medicaments and biological substances; Z82.49 Family history of ischemic heart disease and other diseases of the circulatory system; Z68.34 Body mass index [BMI] 34.0-34.9, adult; Z99.2 Dependence on renal dialysis
CPT/HCPCS: 82962; 36832; 80048; 85025; 85610; 85730; 36415; 93005; J3010; P9047; J3490 ×7; J1100; J1644 ×2; J2250; J2405; J2704; J2720; P9041